=== PATIENT | female | born 1970 | race Caucasian/White ===

== ENCOUNTER 2020-06-25 11:22 | Outpatient (REF) | payer OTHER, SELFPAY ==
--- NOTE | ~2020-06-25 | CT_ITS ---
EXAMINATION: CT ABDOMEN AND PELVIS WITHOUT CONTRAST CLINICAL INFORMATION: Renal calculi. COMPARISON: None TECHNIQUE: Multidetector volumetric imaging was performed from the superior aspect of the liver through the pubic symphysis. Sagittal and coronal reformatted images were obtained on the technologist's workstation. This CT examination was performed using dose optimization techniques as appropriate, variously including the following: *Automated exposure control *Adjustment of mA and/or kV according to patient size (this includes techniques or standardized protocols for targeted exams where dose is matched to indication/reason for exam; i.e. extremities or head) *Use of iterative reconstruction technique DLP: 463 mGy-cm FINDINGS: LUNG BASES: There is dependent bibasilar atelectasis. The heart size is normal. LIVER, GALLBLADDER, AND BILIARY TREE: The liver is normal in size, shape, and attenuation. No focal hepatic lesion or biliary ductal dilatation is present. The gallbladder is unremarkable with no evidence of radiopaque gallstones, gallbladder wall thickening, or obvious pericholecystic inflammatory changes. PANCREAS: Unremarkable. SPLEEN: Unremarkable. ADRENAL GLANDS: Unremarkable. KIDNEYS AND URETERS: The kidneys are normal in size, shape, and attenuation. There is a 3 mm nonobstructive radiopaque calculi upper midpole of left kidney. No caliectasis or hydronephrosis seen. There is a 3 mm radiopaque right distal ureteral stone without hydroureteronephrosis. BLADDER: Unremarkable. GASTROINTESTINAL TRACT: There is scattered stool and gas seen throughout the colon without any significant distention. The small bowel loops are normal caliber. ABDOMINAL WALL: There is a small umbilical hernia containing fat. LYMPH NODES: Normal. VASCULAR: Unremarkable. PELVIC VISCERA: There is an IUD noted in correct position. In addition, there are bilateral Essure devices. OSSEOUS STRUCTURES: No lytic or sclerotic process seen. CT/CT abdomen pelvis wo con IMPRESSION: 3 mm nonobstructive radiopaque calculi right distal ureter without hydroureteronephrosis. 3 mm nonobstructive pubic calculi upper/midpole left kidney.
[2020-06-25 14:11] LABS: Glucose Urine UA NEG (NEG); Leukocyte Esterase Urine NEG (NEG); Nitrite Urine NEG (NEG); Specific Gravity - Urine 1.025 (1.005-1.025); Urine Blood NEG (NEG); Urine Ketones NEG (NEG); Urine Protein NEG (NEG-TRACE)
[2020-06-25 14:14] LABS: Appearance Urine CLEAR; Color Urine YELLOW
[2020-06-25 14:33] LABS: Mucus Urine TRACE /LPF; RBC Urine 0-2 /HPF (0); Renal Epithelial Cells Urine TRACE /LPF; Squamous Epithelial Cell Urine TRACE /LPF
[2020-06-25 16:36] LABS: Hematocrit 45.5 % (37-47); Hemoglobin 15.1 g/dl (12.0-16.0); Mean Corpuscular HGB Conc 33.2 g/dl (31.0-35.0); Mean Corpuscular Hemoglobin 34.3 pg (27.0-33.0); Mean Corpuscular Volume 103.4 fL (80-98); Mean Platelet Volume 10.7 fL (9.4-12.3); Platelet Count 295 X10*3/uL (160-400); White Blood Count 7.2 X10*3/uL (4.8-10.8)
[2020-06-25 17:04] LABS: Alanine Aminotransferase 26 U/L (0-31); Albumin Level 4.6 g/dL (3.5-5.0); Alkaline Phosphatase 79 U/L (39-117); Anion Gap 15 (12-20); Aspartate Amino Transferase 31 U/L (5-31); Bilirubin Total 0.4 mg/dL (0.0-1.0); Blood Urea Nitrogen 18 mg/dL (9-16); Calcium 9.9 mg/dL (8.4-10.2); Carbon Dioxide 26 mmol/L (22-29); Chloride 104 mmol/L (96-108); Cholesterol 267 mg/dL; Estimated Glomerular Filt Rate > 60; Glucose Fasting 77 mg/dL (60-99); HDL Cholesterol 73 mg/dL; LDL Cholesterol Calculated 173 mg/dl; Potassium 4.6 mmol/L (3.3-5.1); Sodium 140 mmol/L (135-145); Total Protein 7.5 g/dL (6.5-8.0); Triglycerides 107 mg/dL
[2020-06-25 17:26] LABS: Thyroid Stimulating Hormone 1.39 uIU/mL (0.32-4.0)
[2020-06-27 00:32] LABS: Follicle Stimulating Hormone 83.1 mIU/mL
== END 2020-06-25 11:23 | disposition home or self-care (01) ==
LOC: HO.CT 11:22
PROVIDERS: PCP Internal Medicine; Visit Provider Internal Medicine
DX: R10.9 Unspecified abdominal pain (principal); R31.9 Hematuria, unspecified; Z87.442 Personal history of urinary calculi; R00.2 Palpitations; N95.9 Unspecified menopausal and perimenopausal disorder; F41.9 Anxiety disorder, unspecified
CPT/HCPCS: 36415; 74176; 80053; 80061; 81001; 83001; 84443; 85027

== ENCOUNTER 2020-06-26 14:19 | Emergency (ER) | payer OTHER, SELFPAY ==
[2020-06-26 14:25] VITALS: BP 184/100; PULSE 81; RESP 18; TEMP 37.1; O2SAT 100; BMI 24.9
[2020-06-26 14:54] LABS: MANUAL DIFF FLAG NO
[2020-06-26 14:55] LABS: Basophils Absolute Auto 0.1 X10*3/uL (0.0-0.2); Basophils Percent Auto 0.9 % (0-2); Eosinophils Absolute Auto 0.2 X10*3/uL (0.0-0.4); Eosinophils Percent Auto 1.9 % (0-4); Hematocrit 44.4 % (37-47); Hemoglobin 15.3 g/dl (12.0-16.0); Imm Gran Abs Auto 0.03 X10*3/uL (0.00-0.03); Imm Gran Pct Auto 0.3 % (0.0-0.4); Lymphocytes Absolute Auto 2.4 X10*3/uL (1.2-4.9); Lymphocytes Percent Auto 21.5 % (20-40); Mean Corpuscular HGB Conc 34.5 g/dl (31.0-35.0); Mean Corpuscular Hemoglobin 34.7 pg (27.0-33.0); Mean Corpuscular Volume 100.7 fL (80-98); Monocytes Percent Auto 9.3 % (2-11); Neutrophils Absolute Auto 7.3 X10*3/uL (2.0-8.3); Neutrophils Percent Auto 66.1 % (45-73); Platelet Count 293 X10*3/uL (160-400); Red Blood Count 4.41 X10*6/uL (4.20-5.50); Red Cell Distribution Width 12.8 % (11.0-16.0)
[2020-06-26 15:19] LABS: Anion Gap 17 (12-20); Blood Urea Nitrogen 17 mg/dL (9-16); Calcium 9.7 mg/dL (8.4-10.2); Carbon Dioxide 20 mmol/L (22-29); Chloride 105 mmol/L (96-108); Creatinine Clr Calc Pharmacy 64.2; Estimated Glomerular Filt Rate 59; Glucose Random 98 mg/dL (60-115); Potassium 4.3 mmol/L (3.3-5.1); Sodium 138 mmol/L (135-145)
--- NOTE | 2020-06-26 15:26 | ED.ABDPAIN ---
HPI - Abdominal Pain General Chief Complaint: Abdominal Pain Stated Complaint: FLANK PAIN Time Seen by Provider: 06/26/20 15:23 Source: patient Mode of arrival: ambulatory Limitations: no limitations History of Present Illness HPI narrative: Patient with History of kidney stones last episode of stone was 4 years ago was doing fine 6 years ago noticed sudden onset of pain in the right flank area radiating to the right lower quadrant which lasted for a day did not have any pain for last 5 days, started on antibiotics by PCP thinking of UTI had a CT scan done yesterday which showed 3 mm stone in distal right ureter with with no hydronephrosis today again since morning patient started having pain with nausea and vomited 1 time more severe than last time patient denies any hematuria or urinary complaint MD elicited complaint: flank pain Pertinent past history: kidney stones Onset (ago): day(s) Pain Consistency: constant Location: R flank Severity: severe Quality: stabbing Radiation: RLQ Exacerbating factors: nothing Relieving factors: nothing Associated symptoms: nausea and vomiting Related Data Home Medications Medication Instructions Recorded Confirmed secukinumab 150 mg/mL subcutaneous mg SUBCUT Q4W 05/03/20 05/03/20 pen injector Previous Rx's Medication Instructions Recorded buspirone 10 mg tablet 10 mg PO BID #60 tab 05/03/20 lorazepam 0.5 mg tablet 0.5 mg PO DAILY PRN #20 tab 05/03/20 ciprofloxacin HCl 250 mg tablet 250 mg PO BID 3 Days #6 tab 06/21/20 oxycodone 5 mg PO Q6H PRN #20 tab 06/26/20 tamsulosin [Flomax] 0.4 mg PO BEDTIME #10 cap 06/26/20 Allergies Allergy/AdvReac Type Severity Reaction Status Date / Time No Known Allergies Allergy Verified 06/21/20 10:15 Review of Systems Review of Systems Constitutional : No Weight loss, No Fever, No Chills ENT/Mouth : No sore throat, No Rhinorrhea Eyes: No Eye Pain, No Swelling Cardiovascular : No Chest Pain, no palpitations Respiratory : No Cough, No Sputum, no shortness of breath Gastrointestinal : +Nausea, + Vomiting, No Diarrhea, No abdominal Pain, no black stools Genitourinary : No Dysuria, No Urinary Frequency Musculoskeletal : No joint pain, No Myalgias, No Joint Swelling Skin : No Skin Lesions, No rash Neuro : No Weakness, No Numbness, No Dizziness, No Headache Psych : No Anxiety/Panic, No Depression Heme/Lymph: No Bruising, No Lymphadenopathy Endocrine : No Polyuria, No Polydipsia All other systems reviewed and are negative Physical Exam Vital Signs: Vital Signs: Last Vital Signs Temp 98.9 F 06/26/20 18:05 Pulse 65 06/26/20 18:05 Resp 16 06/26/20 18:05 BP 115/85 06/26/20 18:05 Pulse Ox 96 06/26/20 18:05 Body Mass Index 24.9 Appearance: Alert. Oriented X3. In moderate distress. Eyes: Pupils equal, round and reactive to light. ENT: Pharynx normal. Neck: Normal inspection. Neck supple. CVS: Normal heart rate and rhythm. Pulses normal. Respiratory: No respiratory distress. Breath sounds normal. Abdomen: Soft and nontender. Bowel sounds are present, no mass palpable, right CVA tenderness ++ Skin: Skin warm and dry. Normal skin color. Normal skin turgor. Extremities: No lower extremity edema. Neuro: Oriented X 3. No motor deficit. No sensory deficit. Course Course Course Narrative: Patient with right renal colic with 3 mm stone in distal ureter feeling much better now almost pain-free will discharge her home advised to follow-up with urologist MDM - Abdominal Pain Lab Data Result diagrams: 06/26/20 14:47 06/26/20 14:47 Labs: Lab Results 06/26/20 06/26/20 06/26/20 Range/Units 14:47 14:47 14:47 WBC 11.0 H (4.8-10.8) X10*3/uL RBC 4.41 (4.20-5.50) X10*6/uL Hgb 15.3 (12.0-16.0) g/dl Hct 44.4 (37-47) % MCV 100.7 H (80-98) fL MCH 34.7 H (27.0-33.0) pg MCHC 34.5 (31.0-35.0) g/dl RDW 12.8 (11.0-16.0) % Plt Count 293 (160-400) X10*3/uL MPV 10.0 (9.4-12.3) fL Immature Gran % (Auto) 0.3 (0.0-0.4) % Neut % (Auto) 66.1 (45-73) % Lymph % (Auto) 21.5 (20-40) % [place] % (Auto) 9.3 (2-11) % Eos % (Auto) 1.9 (0-4) % Baso % (Auto) 0.9 (0-2) % Lymph # (Auto) 2.4 (1.2-4.9) X10*3/uL [place] # (Auto) 1.0 (0.1-1.2) X10*3/uL Eos # (Auto) 0.2 (0.0-0.4) X10*3/uL Baso # (Auto) 0.1 (0.0-0.2) X10*3/uL Abs Immat Gran (auto) 0.03 (0.00-0.03) X10*3/uL Absolute Neuts (auto) 7.3 (2.0-8.3) X10*3/uL Absolute Nucleated RBC 0.000 (0.0-0.012) X10*3/uL Nucleated RBC % (auto) 0.0 (0.0-0.2) /100WBC Hold Purple Top SEE NOTE Hold Blue Top Sodium 138 (135-145) mmol/L Potassium 4.3 (3.3-5.1) mmol/L Chloride 105 (96-108) mmol/L Carbon Dioxide 20 L (22-29) mmol/L Anion Gap 17 (12-20) BUN 17 H (9-16) mg/dL Creatinine 1.00 (0.5-1.4) mg/dL Estim Creat Clear Calc 64.2 Estimated GFR 59 Random Glucose 98 (60-115) mg/dL Calcium 9.7 (8.4-10.2) mg/dL Urine Color Urine Appearance Urine pH (5.0-8.0) Ur Specific Monument (1.005-1.025) Urine Protein (NEG-TRACE) MG/DL Urine Glucose (UA) (NEG) MG/DL Urine Ketones (NEG) MG/DL Urine Blood (NEG) Urine Nitrite (NEG) Ur Leukocyte Esterase (NEG) Urine RBC (0) /HPF Urine WBC (0-4) /HPF Ur Squamous Epith Cells /LPF Urine Bacteria /LPF Urine Mucus /LPF Urine Test (NEGATIVE) 02/06/21 02/06/21 Range/Units 14:47 17:32 WBC (4.8-10.8) X10*3/uL RBC (4.20-5.50) X10*6/uL Hgb (12.0-16.0) g/dl Hct (37-47) % MCV (80-98) fL MCH (27.0-33.0) pg MCHC (31.0-35.0) g/dl RDW (11.0-16.0) % Plt Count (160-400) X10*3/uL MPV (9.4-12.3) fL Immature Gran % (Auto) (0.0-0.4) % Neut % (Auto) (45-73) % Lymph % (Auto) (20-40) % [place] % (Auto) (2-11) % Eos % (Auto) (0-4) % Baso % (Auto) (0-2) % Lymph # (Auto) (1.2-4.9) X10*3/uL [place] # (Auto) (0.1-1.2) X10*3/uL Eos # (Auto) (0.0-0.4) X10*3/uL Baso # (Auto) (0.0-0.2) X10*3/uL Abs Immat Gran (auto) (0.00-0.03) X10*3/uL Absolute Neuts (auto) (2.0-8.3) X10*3/uL Absolute Nucleated RBC (0.0-0.012) X10*3/uL Nucleated RBC % (auto) (0.0-0.2) /100WBC Hold Purple Top Hold Blue Top SEE NOTE Sodium (135-145) mmol/L Potassium (3.3-5.1) mmol/L Chloride (96-108) mmol/L Carbon Dioxide (22-29) mmol/L Anion Gap (12-20) BUN (9-16) mg/dL Creatinine (0.5-1.4) mg/dL Estim Creat Clear Calc Estimated GFR Random Glucose (60-115) mg/dL Calcium (8.4-10.2) mg/dL Urine Color YELLOW Urine Appearance HAZY Urine pH 5.5 (5.0-8.0) Ur Specific Monument >= 1.030 H (1.005-1.025) Urine Protein TRACE (NEG-TRACE) MG/DL Urine Glucose (UA) NEG (NEG) MG/DL Urine Ketones NEG (NEG) MG/DL Urine Blood 2+ H (NEG) Urine Nitrite NEG (NEG) Ur Leukocyte Esterase NEG (NEG) Urine RBC 15-29 H (0) /HPF Urine WBC 0-2 (0-4) /HPF Ur Squamous Epith Cells 1+ /LPF Urine Bacteria NONE /LPF Urine Mucus 1+ /LPF Urine Test NEGATIVE (NEGATIVE) Discharge Plan Discharge Clinical Impression: Calculus of kidney Patient Disposition: Home, Self-Care Instructions: Kidney Stones (ED) Additional Instructions: And plenty of fluids. Take pain medication as prescribed. Follow with urologist if pain continues Prescriptions: New oxycodone 5 mg tablet 5 mg PO Q6H PRN (Reason: Pain, Moderate) Qty: 20 RF: 0 tamsulosin [Flomax] 0.4 mg capsule 0.4 mg PO BEDTIME Qty: 10 RF: 0 No Action Cosentyx Pen (2 Pens) 150 mg/mL pen injector subcut Q4W RF: 0 buspirone 10 mg tablet 10 mg PO BID Qty: 60 RF: 3 lorazepam 0.5 mg tablet 0.5 mg PO DAILY PRN (Reason: anxiety) Qty: 20 RF: 0 ciprofloxacin HCl 250 mg tablet 250 mg PO BID 3 Days Qty: 6 RF: 0 Referrals: Shyam Ji III, MD [Physician] - 2 days Interventions: ED Discharge Assessment Last Done: 06/26/20 18:43 Discharge Date/Time: 06/26/20 18:43 [facility] Past Medical History Medical History (Updated 06/26/20 @ 18:25 by Castro Richards MD) Annual physical exam Anxiety Kidney stone Menopausal disorder Palpitations Surgical History History of section History of tubal ligation Family History Family History Father CVD (cardiovascular disease) History of heart attack Mother HTN (hypertension) Maternal Grandmother Aneurysm Maternal Grandfather Myocardial infarction Maternal Grandmother Aneurysm Paternal Grandfather Myocardial infarction CVD (cardiovascular disease) Paternal Grandmother Aneurysm Paternal Uncle CVD (cardiovascular disease) Myocardial infarction Brother No problems noted. Daughter No problems noted. Social History Social History Alcohol intake: current Alcohol intake frequency: a few times a month Smoking Status: Current every day smoker Tobacco Type: Cigarette Cigarettes Per Day: 5 Years Smoked: 20 years Use of substances other than those prescribed or required for medical reasons: No Advance Directives: No Advance Directives Information Provided: No
[2020-06-26 15:33] VITALS: BP 167/101; PULSE 68; RESP 20; TEMP 36.7; O2SAT 97
[2020-06-26] MEDS: Tamsulosin HCL 0.4 MG CAPSULE 0.8 MG PO (16:10)
[2020-06-26] MEDS: 0.9 % Sodium Chloride 1,000 ML 999 ML IVCONT (16:10)
[2020-06-26] MEDS: ondansetron HCL 4 MG/2 ML VIAL IVPUSH (16:12)
[2020-06-26] MEDS: Ketorolac Tromethamine 30 MG/ML VIAL IVPUSH (16:13)
[2020-06-26 16:14] VITALS: RESP 20
[2020-06-26] MEDS: Morphine Sulfate 4 MG/ML CARTRIDGE IVPUSH ×2 (16:14→17:42)
[2020-06-26 16:56] VITALS: BP 161/93; PULSE 53; RESP 16; TEMP 37.2; O2SAT 99
[2020-06-26 17:39] LABS: Appearance Urine HAZY; Color Urine YELLOW; Glucose Urine UA NEG (NEG); Leukocyte Esterase Urine NEG (NEG); Nitrite Urine NEG (NEG); PH 5.5 (5.0-8.0); Specific Gravity - Urine >= 1.030 (1.005-1.025); Urine Blood 2+ (NEG); Urine Ketones NEG (NEG); Urine Protein TRACE MG/DL (NEG-TRACE)
[2020-06-26 17:40] LABS: UPreg QC Valid YES; Urine Pregnancy NEGATIVE (NEGATIVE)
[2020-06-26 17:42] VITALS: RESP 16
[2020-06-26] MEDS: dexAMETHasone sod phosphate 4 MG/ML VIAL IVPUSH (17:43)
[2020-06-26 17:46] LABS: Mucus Urine 1+ /LPF; Squamous Epithelial Cell Urine 1+ /LPF; WBC Urine 0-2 /HPF (0-4)
--- NOTE | 2020-06-26 17:49 | PC.NURSE ---
Pt tolerating PO well.
[2020-06-26 18:05] VITALS: BP 115/85; PULSE 65; RESP 16; TEMP 37.2; O2SAT 96
== END 2020-06-26 18:43 | disposition home or self-care (01) ==
PROVIDERS: Emergency Provider Internal Medicine; PCP Internal Medicine
DX: N20.0 Calculus of kidney (principal); R10.31 Right lower quadrant pain
CPT/HCPCS: 36415; 80048; 81001; 81025; 85025; 96361; 96374; 96375; 96376; 99284; J1100; J1885; J2270; J2405

== ENCOUNTER → 2020-07-06 11:23 | Outpatient (BNVA) | payer OTHER, SELFPAY | PROVIDERS: PCP Internal Medicine; Visit Provider Urology | DX: N20.0 Calculus of kidney (principal) | CPT/HCPCS: 99202 ==

== ENCOUNTER 2020-09-03 14:47 | Outpatient (REF) | payer OTHER, SELFPAY ==
[2020-09-03 16:51] LABS: Calcium 9.6 mg/dL (8.4-10.2); Magnesium 1.9 mg/dL (1.6-2.6); Phosphorus 3.4 mg/dL (2.7-4.5)
[2020-09-06 16:17] LABS: Calcium (PTHI) 9.8 mg/dL (8.6-10.2); PTHI 27 pg/mL (14-64)
== END 2020-09-03 14:48 | disposition home or self-care (01) ==
LOC: HO.HMGCLDS 14:47
PROVIDERS: Visit Provider Urology
DX: N20.0 Calculus of kidney (principal); Z87.442 Personal history of urinary calculi
CPT/HCPCS: 36415; 82310; 83735; 83970; 84100

== ENCOUNTER 2021-02-21 09:51 | Outpatient (REF) | payer OTHER, SELFPAY ==
--- NOTE | ~2021-02-21 | US_ITS ---
EXAMINATION: US RETROPERITONEAL LIMITED (RENAL ONLY) CLINICAL INFORMATION: Calculus of kidney. COMPARISON: CT abdomen and pelvis 06/25/2020. TECHNIQUE: Real-time imaging of the kidneys. FINDINGS: RIGHT KIDNEY: 11.3 x 4.4 x 5.9 cm (SAG x AP x TRV). The kidney is normal in size, contour, and echogenicity. Renal cortical thickness is normal. No calculi or focal parenchymal lesions. No hydronephrosis. LEFT KIDNEY: 10.4 x 5.0 x 5.2 cm (SAG x AP x TRV). The kidney is normal in size, contour, and echogenicity. Renal cortical thickness is normal. There is a 6 x 4 x 4 mm stone in the upper pole. No focal parenchymal lesions or hydronephrosis. US/US renal BI IMPRESSION: Left renal stone.
--- NOTE | ~2021-02-21 | XR_ITS ---
EXAMINATION: XR SACROILIAC JOINTS XR HIP WITH PELVIS, BILATERAL CLINICAL INFORMATION: Psoriasis. COMPARISON: CT abdomen/pelvis dated 06/25/2020. TECHNIQUE: AP and bilateral Judet views of the sacroiliac joints. AP view the pelvis with AP and frog-leg lateral views of the right and left hip. FINDINGS: SACROILIAC JOINTS: No acute fracture or dislocation. Small bilateral sacroiliac marginal osteophytes. No osseous erosion. IUD and Essure device within the pelvis. No abnormal soft tissue calcification. BILATERAL HIP AND PELVIS: No acute fracture or dislocation. No significant hip joint space narrowing or marginal osteophytes. Corticated accessory ossicle versus remote fracture fragment along the anterosuperior aspect of the right acetabulum. No osseous erosion. XR/XR hip BI w PEL1V IMPRESSION: Sacroiliac joints: Mild bilateral sacroiliac degenerative arthritis. Bilateral hip and pelvis: No acute osseous abnormality.
--- NOTE | ~2021-02-21 | XR_ITS ---
EXAMINATION: XR SACROILIAC JOINTS XR HIP WITH PELVIS, BILATERAL CLINICAL INFORMATION: Psoriasis. COMPARISON: CT abdomen/pelvis dated 06/25/2020. TECHNIQUE: AP and bilateral Judet views of the sacroiliac joints. AP view the pelvis with AP and frog-leg lateral views of the right and left hip. FINDINGS: SACROILIAC JOINTS: No acute fracture or dislocation. Small bilateral sacroiliac marginal osteophytes. No osseous erosion. IUD and Essure device within the pelvis. No abnormal soft tissue calcification. BILATERAL HIP AND PELVIS: No acute fracture or dislocation. No significant hip joint space narrowing or marginal osteophytes. Corticated accessory ossicle versus remote fracture fragment along the anterosuperior aspect of the right acetabulum. No osseous erosion. XR/XR sacroiliac joint min 3V IMPRESSION: Sacroiliac joints: Mild bilateral sacroiliac degenerative arthritis. Bilateral hip and pelvis: No acute osseous abnormality.
== END 2021-02-21 09:52 | disposition home or self-care (01) ==
LOC: HO.HMGCX 09:51
PROVIDERS: PCP Internal Medicine; Visit Provider Urology
DX: N20.0 Calculus of kidney (principal); Z87.442 Personal history of urinary calculi; M25.652 Stiffness of left hip, not elsewhere classified; M25.651 Stiffness of right hip, not elsewhere classified; M54.50 Low back pain, unspecified
CPT/HCPCS: 72202; 73521; 76775

== ENCOUNTER → 2021-02-23 09:21 | Outpatient (BNVA) | payer OTHER, SELFPAY | PROVIDERS: PCP Internal Medicine | DX: N20.0 Calculus of kidney (principal); Z87.442 Personal history of urinary calculi | CPT/HCPCS: 99212 ==

== ENCOUNTER 2021-06-17 12:09 | Emergency (ER) | payer OTHER, SELFPAY ==
[2021-06-17 12:26] VITALS: BP 188/107; PULSE 72; RESP 16; TEMP 36.4; O2SAT 97; BMI 25.7
--- NOTE | 2021-06-17 14:51 | ECG_ITS ---
Test Reason : HTN Blood Pressure : / mmHG Vent. Rate : 057 BPM Atrial Rate : 057 BPM P-R Int : 216 ms QRS Dur : 080 ms QT Int : 410 ms P-R-T Axes : 047 051 046 degrees QTc Int : 399 ms Sinus bradycardia with 1st degree A-V block Otherwise normal ECG When compared with ECG of 07-APR-2018 14:02, No significant change was found Referred By: Generic ED Physician Electronically Signed By:TISH LUCERO MD
[2021-06-17 15:26] VITALS: BP 164/86; PULSE 60; RESP 14; TEMP 36.8; O2SAT 99
[2021-06-17 15:40] LABS: MANUAL DIFF FLAG NO
[2021-06-17 15:41] LABS: Basophils Percent Auto 0.5 % (0-2); Eosinophils Absolute Auto 0.2 X10*3/uL (0.0-0.4); Eosinophils Percent Auto 2.5 % (0-4); Hematocrit 39.7 % (37.0-47.0); Hemoglobin 13.6 g/dl (12.0-16.0); Imm Gran Abs Auto 0.01 X10*3/uL (0.00-0.03); Imm Gran Pct Auto 0.2 % (0.0-0.4); Lymphocytes Absolute Auto 1.8 X10*3/uL (1.2-4.9); Lymphocytes Percent Auto 29.3 % (20-40); Mean Corpuscular HGB Conc 34.3 g/dl (31.0-35.0); Mean Corpuscular Hemoglobin 33.6 pg (27.0-33.0); Mean Platelet Volume 9.7 fL (9.4-12.3); Monocytes Absolute Auto 0.6 X10*3/uL (0.1-1.2); Monocytes Percent Auto 9.1 % (2-11); Neutrophils Absolute Auto 3.7 x10*3/uL (2.0-8.3); Neutrophils Percent Auto 58.4 % (45-73); Platelet Count 234 X10*3/uL (160-400); Red Blood Count 4.05 X10*6/uL (4.20-5.50); Red Cell Distribution Width 12.6 % (11.0-16.0); White Blood Count 6.3 X10*3/uL (4.8-10.8)
[2021-06-17 15:54] LABS: COVID-19 Test Negative (Negative)
[2021-06-17 16:02] LABS: Alanine Aminotransferase 24 U/L (0-31); Alkaline Phosphatase 89 U/L (39-117); Anion Gap 12 (12-20); Aspartate Amino Transferase 23 U/L (5-31); Bilirubin Total 0.4 mg/dL (0.0-1.0); Blood Urea Nitrogen 13 mg/dL (9-16); Calcium 9.5 mg/dL (8.4-10.2); Carbon Dioxide 27 mmol/L (22-29); Chloride 107 mmol/L (96-108); Creatinine Clr Calc Pharmacy 65.8; Estimated Glomerular Filt Rate > 60; Glucose Random 98 mg/dL (60-115); Potassium 4.3 mmol/L (3.3-5.1); Sodium 142 mmol/L (135-145); Total Protein 6.7 g/dL (6.5-8.0); Troponin-I High Sensitivity 4.3 ng/L (<3.5-17.0)
--- NOTE | 2021-06-17 16:30 | ED_ITS ---
HPI - General Adult General Chief complaint: General Medical Stated complaint: HBP Time Seen by Provider: 06/17/21 15:53 Source: patient Mode of arrival: ambulatory Limitations: no limitations History of Present Illness HPI narrative: 50-year-old female who presents emergency department for evaluation of elevated blood pressures which was detected at her siebel crm developer's office. The patient has a history of psoriasis. She was started on a new biologic agent, Taltz 80 mg subcutaneously every 3 weeks. She states that she had a follow-up appointment with her siebel crm developer on a took her blood pressure in the office I was 170/112. She was referred to her PCPs office for re-evaluation . The nurse from the PCP's office contacted the patient and advised her to go to the emergency department for evaluation. the patient states that she has not been feeling well since Sunday06/12/2021, 6 days prior to evaluation. She states that she has been having intermittent headache which she describes her located in the back her head and feels like sinus pressure, she states that the headache is 3/10 at its worse and does go away for periods of time. She states the headache came on gradually. She also states she feels congested especially in her right nares and right side of her face. She has been taking Benadryl 25 mg daily. She states she is feeling fatigued and is having pain in her muscles and joints. She denied fever, chills, chest pain, shortness of breath, cough, dyspnea on exertion, diarrhea, loss of sense of taste or smell. The patient has received 2 Moderna vaccines for COVID-19. Patient states that 2 weeks prior she was in [place] on vacation at an [place] resort. Related Data Home Medications Medication Instructions Recorded Confirmed secukinumab 150 mg/mL mg SUBCUT Q4W 05/03/20 05/03/20 subcutaneous pen injector calcipotriene 0.005 % topical 1 appl TOPICAL BID 02/23/21 cream fluocinonide 0.05 % topical 1 appl TOPICAL BID PRN 02/23/21 solution Previous Rx's Medication Instructions Recorded lorazepam 0.5 mg tablet 0.5 mg PO DAILY PRN #20 tab 05/03/20 ciprofloxacin HCl 250 mg tablet 250 mg PO BID 3 Days #6 tab 06/21/20 oxycodone 5 mg tablet 5 mg PO Q6H PRN #20 tab 06/26/20 tamsulosin 0.4 mg capsule (Flomax) 0.4 mg PO BEDTIME #10 cap 06/26/20 pyridoxine (vitamin B6) 100 mg 100 mg PO DAILY 90 Days #90 tab 02/23/21 tablet buspirone 10 mg tablet 10 mg PO BID #180 tab 03/22/21 Allergies Allergy/AdvReac Type Severity Reaction Status Date / Time No Known Allergies Allergy Verified 02/23/21 09:26 Review of Systems Verdana 4l Review of Systems: Yes all other systems are reviewed and Verdana 4d are negative [facility] Past Medical History [facility] Narrative: Past medical history: Psoriasis. Past surgical history: , bilateral tubal ligation. Social history: The patient smokes 1/3 pack of cigarettes per day times 35 years. She drinks alcohol on the weekends usually drinks 6 alcoholic seltzers. She states she occasionally smokes marijuana. Medical History Annual physical exam Anxiety Kidney stone Menopausal disorder Palpitations Surgical History History of section History of tubal ligation Family History Family History Father CVD (cardiovascular disease) History of heart attack Mother HTN (hypertension) Maternal Grandmother Aneurysm Maternal Grandfather Myocardial infarction Maternal Grandmother Aneurysm Paternal Grandfather Myocardial infarction CVD (cardiovascular disease) Paternal Grandmother Aneurysm Paternal Uncle CVD (cardiovascular disease) Myocardial infarction Brother No problems noted. Daughter No problems noted. Social History Social History Alcohol intake: current Alcohol intake frequency: a few times a month Cigarettes Per Day: 5 Years Smoked: 20 years Advance Directives: No Advance Directives Information Provided: No Patient : No Physical Exam Verdana 4l Vital Signs: Verdana 4d Verdana 4d Vital Signs: Verdana 4d Verdana 4Bd Last Vital Signs Verdana 4d Analog Ic Design Engineer New 4d Analog Ic Design Engineer New 4d Temp 98.2 F 06/17/21 15:26 Analog Ic Design Engineer New 4d Pulse 60 01/28/22 15:26 Analog Ic Design Engineer New 4d Resp 14 06/17/21 15:26 BP 164/86 H 06/17/21 15:26 Pulse Ox 99 06/17/21 15:26 BMI result Body Mass Index 25.7 Const: General: cooperative and no acute distress Orientation/consciousness: orient ed to person and oriented to place Limitations: no limitations HENMT: Head: Yes normal to inspection, Yes normocephalic and Yes atraumatic Ears: external ears normal General nose exam: Normal external nose present Face and sinus: Yes normal facial exam Mouth: Normal oral and palatal mucosa present Throat: Yes posterior oropharynx normal Eyes: General: appearance normal, both eyes and all related structures Pupils: Equal, round and reactive pupils present Neck: Neck: Yes normal visual inspection, Yes no lymphadenopathy, Yes trachea midline and Yes supple Chest: Chest palpation & inspection: normal inspection of the chest and normal palpation of entire chest wall Resp: Effort & Inspection: normal respiratory effort and able to speak in complete sentences Auscultation: clear to auscultation bilaterally Cardio: Rate: regular rate Rhythm: regular rhythm Heart sounds: S1 normal heart sound present, S2 normal heart sound present and no murmurs GI: Inspection: Yes normal to inspection Palpation (GI): Soft to palpation, nontender and no guarding Auscultation: normal bowel sounds : General: Yes no CVA tenderness Back/Spine/Pelvis: Back: no CVA tenderness Skin: General skin exam: no rashes or lesions noted Neuro: General: oriented to person and oriented to place Cranial nerves: Yes CN's II-XII intact bilaterally and Yes Equal, round and reactive pupils present Cognition (Neuro): normal cognition Motor exam (neuro): 5/5 motor strength present throughout Extrem: General: Yes normal to inspection Psych: Appearance: grossly normal Speech and movement: Normal speech and movement present Affect: normal affect Attitude: cooperative Thought process: Normal thought process present Thought content: Normal thought content present Course Course Course Narrative: 50-year-old female who is referred to the emergency department for evaluation of an elevated blood pressure that was found on a routine follow-up dermatology appointment for her psoriasis. The patient has started a new biologic medications, Taltz but hypertension is not listed as 1 of its common side effects. The patient has been having a headache, joint pain, facial pain and fatigue but I think that these are more consistent with a viral syndrome and not related to her elevated blood pressure. The patient has been vaccinated for COVID-19 in her COVID test today was negative. Patient's physical examination was normal. Patient's CBC and CMP were normal. Patient's high sensitivity troponin I was detectable but not elevate. Twelve EKG was unremarkable. At this time, I do not think the patient has hypertensive crisis/ urgency, stroke, heart attack or renal failure is the cause of her elevated blood pressure. Patient most likely has central hypertension and I did discuss the management and treatment of this condition with her. The patient does not want to be started on blood pressure medications at this time and wants to try cutting salt thought of her diet, exercise and weight loss and follow-up with PCP to determine if she needs blood pressure medications. Patient was given printed and verbal instructions and discharged home. 1722: Urinalysis was normal with no proteinuria. Medical Decision Making Lab Data Result diagrams: 06/17/21 15:35 06/17/21 15:35 Labs: Lab Results 06/17/21 06/17/21 06/17/21 Range/Units 15:35 15:35 15:35 WBC 6.3 (4.8-10.8) X10*3/uL RBC 4.05 L (4.20-5.50) X10*6/uL Hgb 13.6 (12.0-16.0) g/dl Hct 39.7 (37.0-47.0) % MCV 98.0 (80.0-98.0) fL MCH 33.6 H (27.0-33.0) pg MCHC 34.3 (31.0-35.0) g/dl RDW 12.6 (11.0-16.0) % Plt Count 234 (160-400) X10*3/uL MPV 9.7 (9.4-12.3) fL Immature Gran % (Auto) 0.2 (0.0-0.4) % Neut % (Auto) 58.4 (45-73) % Lymph % (Auto) 29.3 (20-40) % [place] % (Auto) 9.1 (2-11) % Eos % (Auto) 2.5 (0-4) % Baso % (Auto) 0.5 (0-2) % Lymph # (Auto) 1.8 (1.2-4.9) X10*3/uL [place] # (Auto) 0.6 (0.1-1.2) X10*3/uL Eos # (Auto) 0.2 (0.0-0.4) X10*3/uL Baso # (Auto) 0.0 (0.0-0.2) X10*3/uL Abs Immat Gran (auto) 0.01 (0.00-0.03) X10*3/uL Absolute Neuts (auto) 3.7 (2.0-8.3) x10*3/uL Absolute Nucleated RBC 0.000 (0.0-0.012) X10*3/uL Nucleated RBC % (auto) 0.0 (0.0-0.2) /100WBC Sodium 142 (135-145) mmol/L Potassium 4.3 (3.3-5.1) mmol/L Chloride 107 (96-108) mmol/L Carbon Dioxide 27 (22-29) mmol/L Anion Gap 12 (12-20) BUN 13 (9-16) mg/dL Creatinine 0.98 (0.5-1.4) mg/dL Estim Creat Clear Calc 65.8 Estimated GFR > 60 Random Glucose 98 (60-115) mg/dL Calcium 9.5 (8.4-10.2) mg/dL Total Bilirubin 0.4 (0.0-1.0) mg/dL AST 23 (5-31) U/L ALT 24 (0-31) U/L Alkaline Phosphatase 89 (39-117) U/L Troponin I High Sens 4.3 (<3.5-17.0) ng/L Total Protein 6.7 (6.5-8.0) g/dL Albumin 4.0 (3.5-5.0) g/dL Urine Color Urine Appearance Urine pH (5.0-8.0) Ur Specific Reynolds (1.005-1.025) Urine Protein (NEG-TRACE) MG/DL Urine Glucose (UA) (NEG) MG/DL Urine Ketones (NEG) MG/DL Urine Blood (NEG) Urine Nitrite (NEG) Ur Leukocyte Esterase (NEG) COVID-19 (RAYMUNDO) (Negative) COVID-19 Clin Com 06/17/21 06/17/21 Range/Units 15:35 16:34 WBC (4.8-10.8) X10*3/uL RBC (4.20-5.50) X10*6/uL Hgb (12.0-16.0) g/dl Hct (37.0-47.0) % MCV (80.0-98.0) fL MCH (27.0-33.0) pg MCHC (31.0-35.0) g/dl RDW (11.0-16.0) % Plt Count (160-400) X10*3/uL MPV (9.4-12.3) fL Immature Gran % (Auto) (0.0-0.4) % Neut % (Auto) (45-73) % Lymph % (Auto) (20-40) % [place] % (Auto) (2-11) % Eos % (Auto) (0-4) % Baso % (Auto) (0-2) % Lymph # (Auto) (1.2-4.9) X10*3/uL [place] # (Auto) (0.1-1.2) X10*3/uL Eos # (Auto) (0.0-0.4) X10*3/uL Baso # (Auto) (0.0-0.2) X10*3/uL Abs Immat Gran (auto) (0.00-0.03) X10*3/uL Absolute Neuts (auto) (2.0-8.3) x10*3/uL Absolute Nucleated RBC (0.0-0.012) X10*3/uL Nucleated RBC % (auto) (0.0-0.2) /100WBC Sodium (135-145) mmol/L Potassium (3.3-5.1) mmol/L Chloride (96-108) mmol/L Carbon Dioxide (22-29) mmol/L Anion Gap (12-20) BUN (9-16) mg/dL Creatinine (0.5-1.4) mg/dL Estim Creat Clear Calc Estimated GFR Random Glucose (60-115) mg/dL Calcium (8.4-10.2) mg/dL Total Bilirubin (0.0-1.0) mg/dL AST (5-31) U/L ALT (0-31) U/L Alkaline Phosphatase (39-117) U/L Troponin I High Sens (<3.5-17.0) ng/L Total Protein (6.5-8.0) g/dL Albumin (3.5-5.0) g/dL Urine Color STRAW Urine Appearance CLEAR Urine pH 6.5 (5.0-8.0) Ur Specific Reynolds <= 1.005 (1.005-1.025) Urine Protein NEG (NEG-TRACE) MG/DL Urine Glucose (UA) NEG (NEG) MG/DL Urine Ketones NEG (NEG) MG/DL Urine Blood NEG (NEG) Urine Nitrite NEG (NEG) Ur Leukocyte Esterase NEG (NEG) COVID-19 (RAYMUNDO) Negative (Negative) COVID-19 Clin Com See Note ECG Data Attestation: I personally reviewed and interpreted this ECG as follows: Interpretation: 1548: Sinus bradycardia with a first-degree AV block with a DE interval of 214 milliseconds, QRS duration and QTC intervals were normal, inverted T-wave in the 1, no ST segment elevation, no ST segment depression, no PACs, no PVCs. Discharge Plan Discharge Clinical Impression: Hypertension Patient Disposition: Home, Self-Care Additional Instructions: Your blood pressure was high in the emergency department 164/86 and 188/107. Normal blood pressure is usually 120/80. You are not having as stroke, heart attack or kidney failure. You are not having hypertensive crisis /urgency at this time. Your blood work is all normal. We did a complete blood count and comprehensive metabolic panel on you. Your EKG was normal. Your COVID-19 test was negative. Your headache and other symptoms are probably related to a viral infection. You can take Tylenol as instructed below for your headache symptoms. At this time, avoid taking ibuprofen and antihistamine such as Benadryl since the sometimes can cause her blood pressure to get high. I will call your send a text with your urine results to let you know if there is any protein in your urine. Purchase a blood pressure machine that is recommended by your pharmacist and start checking your blood pressure once a day in the morning for 1-2 weeks or until you see your primary care doctor High blood pressure instructions: The reason to check your blood pressure at home is to give your doctor an idea of what your blood pressure does when you are not in the doctor's office. Take your blood pressure in the mornings, Mondays , Wednesdays and Fridays and then write down these readings to discuss them with your doctor at your next visit. If you doctor decides that your blood pressure readings are high, there are two strategies to help you reduce your blood pressure. One is to cut salt out of your diet, exercise and lose weight. The other is to start you on a blood pressuremedications. You can discuss these 2 strategies with your doctor when you follow-up to discuss your blood pressure readings that you recorded at home. If you get started on medications, it often takes 1-2 months or longer to get your blood pressure under control. If you decide to cut salt under diet, exercise and lose weight it could take up to 6 months to get her blood pressure under control. Lowering your blood pressure to rapidly or getting your blood pressure too low quickly can make you to feel bad. Please return to the emergency department if you develops concerning symptoms such as severe headache, chest pain, shortness of breath, difficulty walking secondary to shortness of breath, numbness, weakness, difficulty talking. Take Tylenol (acetaminophen) 500 mg pills, 2 pills every 4 to 6 hours as needed for pain. Follow-up with your doctor to discuss your blood pressure readings. Please return to the emergency department if your symptoms get worse or if you develop any new symptoms that are concerning to you. Prescriptions: No Action buspirone 10 mg tablet 10 mg PO BID Qty: 180 3RF oxycodone 5 mg tablet 5 mg PO Q6H PRN (Reason: Pain, Moderate) Qty: 20 0RF tamsulosin [Flomax] 0.4 mg capsule 0.4 mg PO BEDTIME Qty: 10 0RF Cosentyx Pen (2 Pens) 150 mg/mL pen injector subcut Q4W 0RF lorazepam 0.5 mg tablet 0.5 mg PO DAILY PRN (Reason: anxiety) Qty: 20 0RF ciprofloxacin HCl 250 mg tablet 250 mg PO BID 3 Days Qty: 6 0RF pyridoxine (vitamin B6) 100 mg tablet 100 mg PO DAILY 90 Days Qty: 90 1RF Interventions: ED Discharge Assessment Last Done: 06/17/21 16:55 Discharge Date/Time: 06/17/21 16:56
[2021-06-17 16:42] LABS: Appearance Urine CLEAR; Color Urine STRAW; Glucose Urine UA NEG (NEG); Leukocyte Esterase Urine NEG (NEG); Nitrite Urine NEG (NEG); PH 6.5 (5.0-8.0); Specific Gravity - Urine <= 1.005 (1.005-1.025); Urine Blood NEG (NEG); Urine Ketones NEG (NEG); Urine Protein NEG (NEG-TRACE)
== END 2021-06-17 16:56 | disposition home or self-care (01) ==
PROVIDERS: Emergency Provider Emergency Medicine Emergency Medical Services; PCP Internal Medicine
DX: I10 Essential (primary) hypertension (principal); Z20.822 Contact with and (suspected) exposure to COVID-19; Z79.899 Other long term (current) drug therapy; F17.210 Nicotine dependence, cigarettes, uncomplicated; Z71.6 Tobacco abuse counseling
CPT/HCPCS: 80053; 81003; 84484; 85025; 87635; 93005; 99283; 99284

== ENCOUNTER 2021-08-19 07:19 | Outpatient (REF) | payer OTHER, SELFPAY ==
[2021-08-19 11:33] LABS: Hematocrit 40.7 % (37.0-47.0); Hemoglobin 13.7 g/dl (12.0-16.0); Mean Corpuscular HGB Conc 33.7 g/dl (31.0-35.0); Mean Corpuscular Hemoglobin 33.7 pg (27.0-33.0); Mean Platelet Volume 10.2 fL (9.4-12.3); Platelet Count 311 X10*3/uL (160-400); Red Blood Count 4.07 X10*6/uL (4.20-5.50); Red Cell Distribution Width 13.3 % (11.0-16.0); White Blood Count 6.9 X10*3/uL (4.8-10.8)
[2021-08-19 11:57] LABS: Alanine Aminotransferase 18 U/L (0-31); Albumin Level 4.2 g/dL (3.5-5.0); Alkaline Phosphatase 81 U/L (39-117); Anion Gap 13 (12-20); Aspartate Amino Transferase 18 U/L (5-31); Bilirubin Total 0.5 mg/dL (0.0-1.0); Blood Urea Nitrogen 18 mg/dL (9-16); Calcium 10.3 mg/dL (8.4-10.2); Carbon Dioxide 26 mmol/L (22-29); Chloride 106 mmol/L (96-108); Cholesterol 255 mg/dL; Estimated Glomerular Filt Rate > 60; Glucose Fasting 87 mg/dL (60-99); HDL Cholesterol 60 mg/dL; LDL Cholesterol Calculated 140 mg/dl; Potassium 3.9 mmol/L (3.3-5.1); Sodium 141 mmol/L (135-145); Triglycerides 279 mg/dL
== END 2021-08-19 07:20 | disposition home or self-care (01) ==
LOC: HO.HMGCLDS 07:19
PROVIDERS: Visit Provider Internal Medicine
DX: E78.2 Mixed hyperlipidemia (principal); I10 Essential (primary) hypertension
CPT/HCPCS: 36415; 80053; 80061; 85027

== ENCOUNTER 2021-09-09 15:10 | Outpatient (REF) | payer OTHER, SELFPAY ==
--- NOTE | ~2021-09-09 | US_ITS ---
EXAMINATION: US RETROPERITONEAL LIMITED (RENAL ONLY) CLINICAL INFORMATION: Calculus of kidney. Patient states recently passed 2 stones. COMPARISON: Renal ultrasound 02/21/2021. CT abdomen and pelvis 06/25/2020. TECHNIQUE: Real-time imaging of the kidneys. FINDINGS: RIGHT KIDNEY: 9.6 x 4.5 x 5.5 cm (SAG x AP x TRV). The kidney is normal in size, contour, and echogenicity. Renal cortical thickness is normal. No calculi or focal parenchymal lesions. No hydronephrosis. LEFT KIDNEY: 10.2 x 4.7 x 5.2 cm (SAG x AP x TRV). The kidney is normal in size, contour, and echogenicity. Renal cortical thickness is normal. No calculi or focal parenchymal lesions. No hydronephrosis. US/US renal BI IMPRESSION: Unremarkable renal ultrasound.
== END 2021-09-09 15:11 | disposition home or self-care (01) ==
LOC: HO.US 15:10
DX: N20.0 Calculus of kidney (principal); Z87.442 Personal history of urinary calculi
CPT/HCPCS: 76775

== ENCOUNTER → 2021-10-10 11:33 | Outpatient (BNVA) | payer OTHER, SELFPAY | PROVIDERS: PCP Internal Medicine | DX: Z13.89 Encounter for screening for other disorder (principal) ==

== ENCOUNTER 2022-02-03 12:57 | Outpatient (REF) | payer OTHER, SELFPAY ==
--- NOTE | ~2022-02-03 | MM_ITS ---
EXAMINATION: MM SCREENING DIGITAL BREAST TOMOSYNTHESIS, BILATERAL CLINICAL INFORMATION: Screening. Asymptomatic. The lifetime risk of breast cancer based on the Tyrer-Cuzick Model is 10%. COMPARISON: Mammography: 02/16/2020, 07/26/2018, 07/04/2017 TECHNIQUE: Digital breast tomosynthesis is performed in both the craniocaudal and mediolateral oblique views along with computer-aided detection (CAD). Synthesized 2D images are generated from the tomosynthesis. FINDINGS: There are scattered areas of fibroglandular density (ACR BI-RADS breast composition Category b). There are no significant masses, abnormal calcifications, or other abnormalities. There is a circumscribed nodule periareolar upper outer right breast stable in size from prior studies. The axilla and skin contours are unremarkable. No significant changes. MM/MM tomosynthesis screening BI IMPRESSION: No mammographic evidence of malignancy. ASSESSMENT: BI-RADS 2: Benign RECOMMENDATION: Routine annual mammography screening. This patient's information was entered into a reminder system with a target due date for their next mammogram.
== END 2022-02-03 12:58 | disposition home or self-care (01) ==
LOC: HO.MAMMO 12:57
PROVIDERS: Visit Provider Internal Medicine
DX: Z12.31 Encounter for screening mammogram for malignant neoplasm of breast (principal)
CPT/HCPCS: 77063; 77067

== ENCOUNTER 2022-03-08 10:02 | Outpatient (REF) | payer OTHER, SELFPAY | END 2022-03-08 10:03 | disposition home or self-care (01) | LOC: HO.LAB 10:02 | PROVIDERS: PCP Internal Medicine; Visit Provider Nurse Practitioner | DX: Z01.818 Encounter for other preprocedural examination (principal); K62.5 Hemorrhage of anus and rectum; R19.5 Other fecal abnormalities | CPT/HCPCS: 36415; 86140; 99202 ==

== ENCOUNTER 2022-03-22 10:49 | Outpatient (REF) | payer OTHER, SELFPAY ==
[2022-03-22 13:00] LABS: Adenovirus F 40/41 Not Detected (Not Detect.); Astrovirus Not Detected (Not Detect.); Campylobacter Not Detected (Not Detect.); Cryptosporidium Not Detected (Not Detect.); Cyclospora cayetanensis Not Detected (Not Detect.); E. coli EAEC Not Detected (Not Detect.); E. coli EPEC Not Detected (Not Detect.); E. coli ETEC Not Detected (Not Detect.); E. coli STEC Not Detected (Not Detect.); Entamoeba histolytica Not Detected (Not Detect.); Giardia lamblia Not Detected (Not Detect.); Norovirus GI/GII Not Detected (Not Detect.); Plesiomonas shigelloides Not Detected (Not Detect.); Rotavirus A Not Detected (Not Detect.); Salmonella Not Detected (Not Detect.); Sapovirus Not Detected (Not Detect.); Shigella sp./EIEC Not Detected (Not Detect.); Vibrio Not Detected (Not Detect.); Vibrio Cholerae Not Detected (Not Detect.); Yersinia enterocolitica Not Detected (Not Detect.)
== END 2022-03-22 10:50 | disposition home or self-care (01) ==
LOC: HO.LNP 10:49
PROVIDERS: Visit Provider Nurse Practitioner
DX: R19.5 Other fecal abnormalities (principal); K62.5 Hemorrhage of anus and rectum
CPT/HCPCS: 87507

== ENCOUNTER 2022-04-10 13:48 | Outpatient (REF) | payer OTHER, SELFPAY ==
[2022-04-11 05:34] LABS: CT PCR NOT DETECTED (Not Detect.); NG PCR NOT DETECTED (Not Detect.)
[2022-04-19 04:57] LABS: HPV mRNA E6/E7 rflx Not Detected (Not Detected)
== END 2022-04-10 13:49 | disposition home or self-care (01) ==
LOC: HO.LNP 13:48
PROVIDERS: Visit Provider Obstetrics & Gynecology
DX: Z30.432 Encounter for removal of intrauterine contraceptive device (principal); Z12.4 Encounter for screening for malignant neoplasm of cervix; Z11.51 Encounter for screening for human papillomavirus (HPV)
CPT/HCPCS: 58301; 81025; 87491; 87591; 87624; 88142

== ENCOUNTER 2022-04-12 10:09 | Outpatient (REF) | payer OTHER, SELFPAY ==
[2022-04-12 10:29] LABS: MANUAL DIFF FLAG NO
[2022-04-12 11:02] LABS: Basophils Absolute Auto 0.1 X10*3/uL (0.0-0.2); Basophils Percent Auto 1.1 % (0-2); Eosinophils Absolute Auto 0.3 X10*3/uL (0.0-0.4); Eosinophils Percent Auto 3.2 % (0-4); Hematocrit 40.2 % (37.0-47.0); Hemoglobin 13.9 g/dl (12.0-16.0); Imm Gran Abs Auto 0.02 X10*3/uL (0.00-0.03); Imm Gran Pct Auto 0.2 % (0.0-0.4); Lymphocytes Absolute Auto 2.2 X10*3/uL (1.2-4.9); Lymphocytes Percent Auto 23.9 % (20-40); Mean Corpuscular HGB Conc 34.6 g/dl (31.0-35.0); Mean Corpuscular Hemoglobin 34.8 pg (27.0-33.0); Mean Corpuscular Volume 100.5 fL (80.0-98.0); Mean Platelet Volume 9.9 fL (9.4-12.3); Monocytes Absolute Auto 0.9 X10*3/uL (0.1-1.2); Monocytes Percent Auto 9.4 % (2-11); Neutrophils Absolute Auto 5.8 x10*3/uL (2.0-8.3); Neutrophils Percent Auto 62.2 % (45-73); Platelet Count 320 X10*3/uL (160-400); Red Cell Distribution Width 12.6 % (11.0-16.0); White Blood Count 9.3 X10*3/uL (4.8-10.8)
[2022-04-12 12:10] LABS: Alanine Aminotransferase 27 U/L (0-31); Albumin Level 4.5 g/dL (3.5-5.0); Alkaline Phosphatase 116 U/L (39-117); Anion Gap 14 (12-20); Aspartate Amino Transferase 36 U/L (5-31); Bilirubin Total 0.5 mg/dL (0.0-1.0); Blood Urea Nitrogen 13 mg/dL (9-16); Calcium 9.7 mg/dL (8.4-10.2); Carbon Dioxide 29 mmol/L (22-29); Chloride 104 mmol/L (96-108); Cholesterol 174 mg/dL; Estimated Glomerular Filt Rate > 60; Glucose Fasting 64 mg/dL (60-99); HDL Cholesterol 71 mg/dL; LDL Cholesterol Calculated 74 mg/dl; Potassium 4.2 mmol/L (3.3-5.1); Sodium 143 mmol/L (135-145); Total Protein 7.1 g/dL (6.5-8.0); Triglycerides 148 mg/dL
[2022-04-12 12:33] LABS: TSH reflex Free T4 2.98 uIU/mL (0.32-4.0)
[2022-04-12 13:21] LABS: Vitamin D 25-OH Total 49.1 ng/mL (>30)
== END 2022-04-12 10:10 | disposition home or self-care (01) ==
LOC: HO.LAB 10:09
PROVIDERS: PCP Internal Medicine; Visit Provider Internal Medicine
DX: Z00.00 Encounter for general adult medical examination without abnormal findings (principal); E78.2 Mixed hyperlipidemia; I10 Essential (primary) hypertension; R19.5 Other fecal abnormalities; K62.5 Hemorrhage of anus and rectum
CPT/HCPCS: 36415; 80053; 80061; 82306; 84443; 85025; 99212

== ENCOUNTER 2022-06-19 13:50 | Outpatient (REF) | payer OTHER, SELFPAY ==
--- NOTE | ~2022-06-19 | US_ITS ---
EXAMINATION: US RETROPERITONEAL LIMITED (RENAL ONLY) CLINICAL INFORMATION: Personal history of urinary calculi. COMPARISON: Renal ultrasound 09/09/2021 and 02/21/2021. CT abdomen and pelvis 06/25/2020. TECHNIQUE: Real-time imaging of the kidneys. FINDINGS: RIGHT KIDNEY: 10.4 x 5.1 x 6.2 cm (SAG x AP x TRV). The kidney is normal in size, contour, and echogenicity. Renal cortical thickness is normal. No calculi or focal parenchymal lesions. No hydronephrosis. LEFT KIDNEY: 9.7 x 5.2 x 4.9 cm (SAG x AP x TRV). The kidney is normal in size, contour, and echogenicity. Renal cortical thickness is normal. No calculi or focal parenchymal lesions. No hydronephrosis. US/US renal BI IMPRESSION: Negative exam. No renal calculi are seen on the current study.
== END 2022-06-19 13:51 | disposition home or self-care (01) ==
LOC: HO.HMGCX 13:50
DX: Z87.442 Personal history of urinary calculi (principal)
CPT/HCPCS: 76775

== ENCOUNTER → 2022-07-14 14:35 | Outpatient (BNVA) | payer OTHER, SELFPAY | PROVIDERS: PCP Internal Medicine; Visit Provider Nurse Practitioner Family | DX: Z13.89 Encounter for screening for other disorder (principal) ==

== ENCOUNTER 2023-01-23 08:05 | Outpatient (AMB) | payer OTHER, SELFPAY ==
--- NOTE | 2023-01-23 08:11 | AM.OFFWIN_ITS ---
Intake Vital Signs 01/23/23 08:12 Weight 149 lb BP 120/80 Blood Pressure Location Lt brachial Position Sitting Pulse 60 Pulse Source Pulse Oximeter Temp 97.4 F Temp Source Temporal Artery Scan Pulse Oximetry (%) 98 Oxygen Delivery Method Room Air Intake Visit Reasons: Ep, sore throat (masked) Intake Note: Patient here for sore throat for about 6 days. she states she has had this same feeling in the spring and was given amox which helped but is unsure if it the same. Patient Tobacco Use Status: Current everyday Tobacco user Allergies No Known Allergies Allergy (Verified 01/23/23 08:14) Medication List - Last Reconciled 01/23/23 by Shelly Brumfield MD amlodipine 5 mg PO DAILY atorvastatin 20 mg PO BEDTIME buspirone 20 mg (2 x 10 mg) PO BID calcipotriene 0.005% 1 appl topical BID dextromethorphan-guaifenesin 10-200 mg (Coricidin HBP Chest Congestion-Cough) 1 tab-cap PO Q8H PRN 10 days fluocinonide 0.05% 1 appl topical BID PRN ixekizumab (Taltz Autoinjector (2 Pack)) 80 mg subcut Q4W lorazepam 0.5 mg PO DAILY PRN nicotine 1 patch transdermal DAILY valacyclovir 0 mg PO Do you need a note to return to daycare/school/sports/work: No HPI Ep, sore throat (masked) HPI Details Patient is a 52-year-old female came in today to be evaluated for sore throat Patient has been having symptoms for the past 6 days and they are not improving. She has no fever no chills no headache no body aches and pains is no nausea vomiting diarrhea no abdominal pain Her strep test is positive. Patient will be treated with amoxicillin for 10 days She will told to gargle with warm water and tsp of salt for discomfort. She is to push fluids [facility] Medical History Annual physical exam Anxiety HTN (hypertension) Kidney stone Menopausal disorder Palpitations Surgical History History of section History of tubal ligation Family History Father CVD (cardiovascular disease) History of heart attack Mother HTN (hypertension) Maternal Grandmother Aneurysm Maternal Grandfather Myocardial infarction Maternal Grandmother Aneurysm Paternal Grandfather Myocardial infarction CVD (cardiovascular disease) Paternal Grandmother Aneurysm Paternal Uncle CVD (cardiovascular disease) Myocardial infarction Brother No problems noted. Daughter No problems noted. Social History Housing: Condominium Alcohol intake: current Alcohol intake frequency: a few times a month Patient Tobacco Use Status: Current everyday Tobacco user Cigarettes Per Day: 3 Years Smoked: 20 years e-Cigarette/Vaping Use: Never Used Current occupational status: employed Cognitive needs: No Hearing needs: No Vision needs: Yes Female Reproductive History Menstrual Age of Menarche: 13 Review of Systems Const All systems reviewed & are unremarkable except as noted in HPI and below Physical Exam Vital Signs: Last Vital Signs Temp 97.4 F 01/23/23 08:12 Pulse 60 01/23/23 08:12 BP 120/80 01/23/23 08:12 Pulse Ox 98 01/23/23 08:12 Oxygen Delivery Method Room Air 01/23/23 08:12 Const General: no acute distress Orientation/consciousness: patient oriented x3 HEENT Other: Positive throat erythema, uvula midline no exudate Eyes General: appearance normal, both eyes and all related structures Resp Effort & Inspection: normal respiratory effort and able to speak in complete sentences Auscultation: clear to auscultation bilaterally Cardio Other: S1 S2 Neuro General: patient oriented x3 Psych Mental Status: mental status grossly normal Results AMB Rapid Strep AMB Rapid Strep Positive Last Edit by MARIE Locke on 01/23/23 08:34 Results Reviewed Results Reviewed: Laboratory Last Values Strep Scn Rapid Clinic Positive 01/23/23 08:34 Assessment & Plan Assessment & Plan (1) Strep pharyngitis: Code(s): J02.0 - Streptococcal pharyngitis Plan Patient is a 52-year-old female came in today to be evaluated for sore throat Patient has been having symptoms for the past 6 days and they are not improving. She has no fever no chills no headache no body aches and pains is no nausea vomiting diarrhea no abdominal pain Her strep test is positive. Patient will be treated with amoxicillin for 10 days She will told to gargle with warm water and tsp of salt for discomfort. She is to push fluids Orders: Orders AMB Rapid Strep Screen Today Z13.9 - Encounter for screening, unspecified Medications: New amoxicillin 875 mg PO BID 20 tabs 0RF 10 days Coding Level of Care Code Est Pt Level 3 (03611) Diagnoses Strep pharyngitis J02.0
[2023-01-23 08:12] VITALS: BP 120/80; PULSE 60; TEMP 36.3; O2SAT 98
== END 2023-01-23 08:54 | disposition home or self-care (01) ==
PROVIDERS: PCP Internal Medicine; Visit Provider Internal Medicine
DX: J02.0 Streptococcal pharyngitis (principal); J02.9 Acute pharyngitis, unspecified
CPT/HCPCS: 87880; 99213

== ENCOUNTER 2023-04-30 12:10 | Outpatient (REF) | payer OTHER, SELFPAY ==
[2023-04-30 13:17] LABS: MANUAL DIFF FLAG NO
[2023-04-30 13:41] LABS: Basophils Absolute Auto 0.1 X10*3/uL (0.0-0.2); Eosinophils Absolute Auto 0.2 X10*3/uL (0.0-0.4); Eosinophils Percent Auto 2.9 % (0-4); Hemoglobin 14.3 g/dl (12.0-16.0); Imm Gran Abs Auto 0.01 X10*3/uL (0.00-0.03); Imm Gran Pct Auto 0.2 % (0.0-0.4); Lymphocytes Absolute Auto 2.1 X10*3/uL (1.2-4.9); Lymphocytes Percent Auto 38.2 % (20-40); Mean Corpuscular Hemoglobin 33.4 pg (27.0-33.0); Mean Corpuscular Volume 98.1 fL (80.0-98.0); Mean Platelet Volume 10.6 fL (9.4-12.3); Monocytes Absolute Auto 0.6 X10*3/uL (0.1-1.2); Monocytes Percent Auto 10.1 % (2-11); Neutrophils Absolute Auto 2.6 x10*3/uL (2.0-8.3); Neutrophils Percent Auto 46.6 % (45-73); Platelet Count 326 X10*3/uL (160-400); Red Blood Count 4.28 X10*6/uL (4.20-5.50); Red Cell Distribution Width 13.2 % (11.0-16.0); White Blood Count 5.6 X10*3/uL (4.8-10.8)
[2023-04-30 14:22] LABS: Alanine Aminotransferase 26 U/L (0-31); Albumin Level 4.2 g/dL (3.5-5.0); Alkaline Phosphatase 111 U/L (39-117); Anion Gap 16 (12-20); Aspartate Amino Transferase 34 U/L (5-31); Bilirubin Total 0.4 mg/dL (0.0-1.0); Blood Urea Nitrogen 16 mg/dL (9-16); Calcium 9.4 mg/dL (8.4-10.2); Carbon Dioxide 23 mmol/L (22-29); Chloride 108 mmol/L (96-108); Cholesterol 183 mg/dL (<200); Estimated Glomerular Filt Rate > 60; Glucose Fasting 85 mg/dL (60-99); HDL Cholesterol 79 mg/dL (>40); LDL Cholesterol Calculated 62 mg/dL (<100); Potassium 3.8 mmol/L (3.3-5.1); Sodium 143 mmol/L (135-145); Total Protein 7.2 g/dL (6.5-8.0); Triglycerides 212 mg/dL (<150)
[2023-04-30 14:32] LABS: TSH reflex Free T4 1.76 uIU/mL (0.32-4.0); Vitamin D 25-OH Total 42.9 ng/mL (>30)
== END 2023-04-30 12:11 | disposition home or self-care (01) ==
LOC: HO.HMGCLDS 12:10
PROVIDERS: PCP Internal Medicine; Visit Provider Internal Medicine
DX: N95.9 Unspecified menopausal and perimenopausal disorder (principal); E78.2 Mixed hyperlipidemia; I10 Essential (primary) hypertension
CPT/HCPCS: 36415; 80053; 80061; 82306; 84443; 85025

== ENCOUNTER 2023-05-07 13:28 | Outpatient (REF) | payer OTHER, SELFPAY | END 2023-05-07 13:29 | disposition home or self-care (01) | LOC: HO.MAMMO 13:28 | PROVIDERS: PCP Internal Medicine; Visit Provider Internal Medicine | DX: Z12.31 Encounter for screening mammogram for malignant neoplasm of breast (principal) | CPT/HCPCS: 77063; 77067 ==

== ENCOUNTER → 2023-05-07 13:45 | Outpatient (BNV) | payer OTHER, SELFPAY | PROVIDERS: PCP Internal Medicine; Visit Provider Radiology Diagnostic Radiology | DX: Z12.31 Encounter for screening mammogram for malignant neoplasm of breast (principal) | CPT/HCPCS: 77063; 77067 ==

== ENCOUNTER 2023-05-11 13:14 | Outpatient (AMB) | payer OTHER, SELFPAY ==
[2023-05-11 13:17] VITALS: BP 118/72; PULSE 75; O2SAT 98; BMI 25.6
--- NOTE | 2023-05-11 13:17 | MHC.PC.OV ---
Vital Signs 05/11/23 13:17 Height 5 ft 4 in Weight 149 lb BMI 25.6 BP 118/72 Blood Pressure Location Rt brachial Position Sitting Pulse 75 Pulse Source Pulse Oximeter Pulse Oximetry (%) 98 Oxygen Delivery Method Room Air Intake Visit Reasons: PE+NEEDS PHQ9/THRIVE Intake Note: pt is here for physical exam Licensed Psychologist Required: No Accompanied by: Self / Same As Patient Allergies No Known Allergies Allergy (Verified 05/11/23 13:17) Medication List - Last Reconciled 05/11/23 by Priya Varela MD amlodipine 5 mg PO DAILY atorvastatin 20 mg PO BEDTIME buspirone 20 mg (2 x 10 mg) PO BID fluocinonide 0.05% 1 appl topical BID PRN ixekizumab (Taltz Autoinjector (2 Pack)) 80 mg subcut Q4W lorazepam 0.5 mg PO DAILY PRN valacyclovir 0 mg PO Tobacco use date assessed: 05/11/23 Dental Screening Dental Screen Date: 05/11/23 Did you have a dental visit in the last 12 months?: Yes Did you have a dental problem in the last 6 months where you did not have access to dental care?: No Was dental information given to patient?: Patient has dentist HPI PE+NEEDS PHQ9/THRIVE HPI Details Pt presents for PE. [facility] Medical History HTN (hypertension) Kidney stone Menopausal disorder Palpitations Anxiety Annual physical exam Surgical History History of section History of tubal ligation Family History Father CVD (cardiovascular disease) History of heart attack Mother HTN (hypertension) Maternal Grandmother Aneurysm Maternal Grandfather Myocardial infarction Maternal Grandmother Aneurysm Paternal Grandfather Myocardial infarction CVD (cardiovascular disease) Paternal Grandmother Aneurysm Paternal Uncle CVD (cardiovascular disease) Myocardial infarction Brother No problems noted. Daughter No problems noted. Social History Housing: Condominium Alcohol intake: current Alcohol intake frequency: a few times a month Patient Tobacco Use Status: Current everyday Tobacco user Cigarettes Per Day: 3 Years Smoked: 20 years e-Cigarette/Vaping Use: Never Used Current occupational status: employed Cognitive needs: No Hearing needs: No Vision needs: Yes Female Reproductive History Menstrual Age of Menarche: 13 Questionnaire PHQ-9 Over the last 2 weeks, how often have you been bothered by any of the following problems? 1. Little interest or pleasure in doing things: several days 2. Feeling down, depressed, or hopeless: several days 3. Trouble falling or staying asleep, or sleeping too much: nearly every day 4. Feeling tired or having little energy: more than half the days 5. Poor appetite or overeating: several days 6. Feeling bad about yourself - or that you are a failure or have let yourself or your family down: several days 7. Trouble concentrating on things, such as reading the newspaper or watching television: several days 8. Moving or speaking so slowly that other people could have noticed. Or the opposite - being so fidgety or restless that you have been moving around a lot more than usual: not at all 9. Thoughts that you would be better off or of hurting yourself in some way: not at all Total score: 10 Depression Screening Interpretation: Positive Depression Screening Done: Yes 53942 - PHQ-9 Billing: Yes Source: Developed by Drs. Hubert Sutherland, Lauren Lares, Ben Del Real and colleagues, with an educational raymond from [employer] Thrive Questionnaire Date Thrive assessed: 05/11/23 I am a: Patient What is your living situation today?: I have a steady place to live Within the past 12 months, did the food you bought not last and you didn't have the money to get more?: Never true Within the past 12 months, did you worry whether your food would run out before you got money to buy more?: Never true Do you have trouble paying for medicines?: No Do you have trouble getting transportation to medical appointments?: No Do you have trouble paying your heating and electricity bill?: No Do you have trouble taking care of your child, family member or friend?: No Do you have trouble with day-to-day activities such as bathing, preparing meals, shopping, managing finances, etc.?: No Are you currently unemployed and looking for a job?: No Are you interested in more education?: No Please select the resources that you would like help with: None Currently or been in a relationship where the following occur: no concerns reported HAILEY-7 AMB Questionnaire HAILEY-7 Date HAILEY - 7 assessed: 05/11/23 Feeling nervous, anxious, or on edge: 1 = Several days Not being able to stop or control worryin = Several days Worrying too much about different things: 2 = More than half the days Trouble relaxin = Nearly every day Being so restless that it is hard to sit still: 2 = More than half the days Becoming easily annoyed or irritable: 2 = More than half the days Feeling afraid as if something awful might happen: 1 = Several days Total HAILEY-7 score (0-4 normal; 5-9 mild; 10-14 moderate; 15-21 severe): 12 Source: Developed by Drs. Hubert Sutherland, Lauren Lares, Ben Del Real and colleagues, with an educational raymond from [employer] HAILEY-7 Assessment Billing HAILEY-7 Assessment Tool: HAILEY-7 Assessment 62578 Review of Systems Const All systems reviewed & are unremarkable except as noted in HPI and below Reports no additional complaints Eyes Reports no additional complaints ENT Reports no additional complaints Card Reports no additional complaints Resp Reports no additional complaints GI Reports no additional complaints Reports no additional complaints Physical exam (Primary Care) Vital Signs: Last Vital Signs Pulse 75 05/11/23 13:17 BP 118/72 05/11/23 13:17 Pulse Ox 98 05/11/23 13:17 Oxygen Delivery Method Room Air 05/11/23 13:17 BMI result Body Mass Index 25.6 Tobacco/Smoking Status: Tobacco use Status Tobacco use date assessed 05/11/23 05/11/23 13:18 Patient Tobacco Use Status Current everyday Tobacco 05/11/23 13:18 e-Cigarette/Vaping Use Never Used 05/11/23 13:18 Depression Screening Interpretation: Positive Thrive Assessment: Date of Thrive Assessment Date Thrive assessed 07/12/21 05/11/23 13:18 Currently or been in a relationship where the following occur: no concerns reported Const General: no acute distress HENMT Head: Yes normal to inspection Ears: hearing grossly normal bilaterally General nose exam: Normal external nose present Face and sinus: Yes normal facial exam Mouth: Normal oral and palatal mucosa present Throat: Yes posterior oropharynx normal Eyes General: appearance normal, both eyes and all related structures Neck Neck: Yes no lymphadenopathy and Yes supple Resp Effort & Inspection: normal respiratory effort Auscultation: clear to auscultation bilaterally Cardio Rhythm: regular rhythm Heart sounds: S1 normal heart sound present and S2 normal heart sound present GI Inspection: Yes normal to inspection Palpation (GI): Soft to palpation Percussion: Yes normal to percussion Auscultation: normal bowel sounds Assessment and Plan Assessment & Plan (1) HTN (hypertension): Code(s): I10 - Essential (primary) hypertension Plan: cont Amlodipine (2) Combined hyperlipidemia: Code(s): E78.2 - Mixed hyperlipidemia Plan: cont statin (3) Annual physical exam: Code(s): Z00.00 - Encounter for general adult medical examination without abnormal findings Plan: Well-balanced diet regular physical activity stress management discussed with the patient. She was advised to quit smoking and decrease alcohol intake. pt will return in 6 months with a fasting labs before. Patient is up-to-date with mammogram Pap smear by change control manager, and refused colonoscopy but Cologuard will be sent (4) Anxiety: Code(s): F41.9 - Anxiety disorder, unspecified Orders: Orders Comprehensive [place]. Panel Fast 6 Months E78.2 - Mixed hyperlipidemia, F41.9 - Anxiety disorder, unspecified, I10 - Essential (primary) hypertension, Z00.00 - Encounter for general adult medical examination without abnormal findings Lipid Panel 6 Months E78.2 - Mixed hyperlipidemia, F41.9 - Anxiety disorder, unspecified, I10 - Essential (primary) hypertension, Z00.00 - Encounter for general adult medical examination without abnormal findings Complete Blood Count Auto Diff 6 Months E78.2 - Mixed hyperlipidemia, F41.9 - Anxiety disorder, unspecified, I10 - Essential (primary) hypertension, Z00.00 - Encounter for general adult medical examination without abnormal findings Hemoglobin A1c 6 Months E78.2 - Mixed hyperlipidemia, F41.9 - Anxiety disorder, unspecified, I10 - Essential (primary) hypertension, Z00.00 - Encounter for general adult medical examination without abnormal findings TSH reflex Free T4 6 Months E78.2 - Mixed hyperlipidemia, F41.9 - Anxiety disorder, unspecified, I10 - Essential (primary) hypertension, Z00.00 - Encounter for general adult medical examination without abnormal findings Referrals Cologuard Test Z12.11 - Encounter for screening for malignant neoplasm of colon, Z12.12 - Encounter for screening for malignant neoplasm of rectum Medications: Refilled amlodipine 5 mg PO DAILY 90 tabs 3RF buspirone 20 mg (2 x 10 mg) PO BID 360 tabs 3RF atorvastatin 20 mg PO BEDTIME 90 tabs 3RF Coding Level of Care Code Est Pt Prev Care 40-64y(18255) Diagnoses HTN (hypertension) I10 Combined hyperlipidemia E78.2 Annual physical exam Z00.00 Anxiety F41.9 Additional Codes HAILEY-7 Assessment Billing - HAILEY-7 Assessment Tool: HAILEY-7 Assessment 67939 ([id number])
== END 2023-05-11 14:24 | disposition home or self-care (01) ==
PROVIDERS: PCP Internal Medicine; Visit Provider Internal Medicine
DX: Z00.00 Encounter for general adult medical examination without abnormal findings (principal); I10 Essential (primary) hypertension; E78.2 Mixed hyperlipidemia; F41.9 Anxiety disorder, unspecified; Z87.442 Personal history of urinary calculi
CPT/HCPCS: 99396

== ENCOUNTER 2023-12-08 23:37 | Emergency (ER) | payer OTHER, SELFPAY ==
[2023-12-08 23:46] VITALS: BP 153/92; PULSE 80; RESP 16; TEMP 36.6; O2SAT 99; BMI 27.0
--- NOTE | 2023-12-09 00:54 | ED_ITS ---
HPI - General Adult General Chief complaint: General Medical Stated complaint: right side of face swollen/bite Time Seen by Provider: 12/09/23 00:29 Source: patient Mode of arrival: ambulatory Limitations: no limitations History of Present Illness ED Provider: FERNANDO NICK narrative: 53 yo female PMH of HSV here with c/o 1 week possible bite to R lower jawline but worsening rash now increase in rash and eruption of itching burning vesicles no fevers, no diff swallowing - tried hydrogen peroxide no relief. Has not had shingles before. MD complaint: rash Onset (ago): day(s) (7) Location: face Radiation: non-radiation Severity: moderate Quality: burning Pain Consistency: constant Relieving factors: none Exacerbating factors: other (palpation) Associated symptoms: denies other symptoms Treatments prior to arrival: other (hydrogen peroxide) Related Data Home Medications ?Medication ?Instructions ?Recorded ?Confirmed fluocinonide 0.05 % topical 1 appl topical BID PRN 02/23/21 05/11/23 solution valacyclovir 1 gram tablet 0 mg PO 03/08/22 05/11/23 ixekizumab 80 mg/mL subcutaneous 80 mg subcut Q4W 04/12/22 05/11/23 auto-injector (Taltz Autoinjector (2 Pack)) Previous Rx's ?Medication ?Instructions ?Recorded lorazepam 0.5 mg tablet 0.5 mg PO DAILY PRN anxiety #20 07/28/22 tabs amlodipine 5 mg tablet 5 mg PO DAILY #90 tabs 05/11/23 atorvastatin 20 mg tablet 20 mg PO BEDTIME #90 tabs 05/11/23 buspirone 10 mg tablet 20 mg (2 x 10 mg) PO BID #360 tabs 05/11/23 cephalexin 500 mg capsule 500 mg PO QID 7 days #28 caps 12/09/23 doxycycline hyclate 100 mg capsule 100 mg PO BID 7 days #14 caps 12/09/23 mupirocin 2 % topical ointment 1 appl topical BID 7 days #15 grams 12/09/23 valacyclovir 1 gram tablet 1,000 mg PO Q8H 7 days #21 tabs 12/09/23 (Valtrex) Allergies Allergy/AdvReac Type Severity Reaction Status Date / Time No Known Allergies Allergy Verified 12/08/23 23:48 Review of Systems Review of Systems: Constitutional : No Fever, No Chills ENT/Mouth : No sore throat, No Rhinorrhea Eyes: No Eye Pain, No Swelling, No Redness Cardiovascular : No Chest Pain, No SOB Respiratory : No Cough, No Sputum Gastrointestinal : No Nausea, No Vomiting, No Diarrhea, No abdominal Pain Genitourinary : No Dysuria, No Hematuria Musculoskeletal : No joint pain, No Myalgias, No Joint Swelling Skin : pos Skin Lesions, positive skin rash Neuro : No Weakness, No Numbness, No Headache Psych : No Anxiety, No Depression All other systems reviewed and are negative [facility] Past Medical History Attestation statement: The following information was validated with the patient. Source: old records reviewed Medical History HTN (hypertension) Kidney stone Menopausal disorder Palpitations Anxiety Annual physical exam Surgical History History of section History of tubal ligation Family History Family History Father CVD (cardiovascular disease) History of heart attack Mother HTN (hypertension) Maternal Grandmother Aneurysm Maternal Grandfather Myocardial infarction Maternal Grandmother Aneurysm Paternal Grandfather Myocardial infarction CVD (cardiovascular disease) Paternal Grandmother Aneurysm Paternal Uncle CVD (cardiovascular disease) Myocardial infarction Brother No problems noted. Daughter No problems noted. Social History [facility] Alcohol intake: current Alcohol intake frequency: a few times a month Patient Tobacco Use Status: Current everyday Tobacco user Cigarettes Per Day: 3 Years Smoked: 20 years e-Cigarette/Vaping Use: Never Used Advance Directives: No Advance Directives Information Provided: No Do you have a plan to hurt others: No Plan Current occupational status: employed Cognitive needs: No Hearing needs: No Vision needs: Yes Physical Exam ED Vital Signs: Vital Signs - 24 hr 12/08/23 23:46 Temperature 97.9 F Pulse Rate 80 Respiratory Rate 16 Blood Pressure 153/92 H Pulse Oximetry 99 Oxygen Delivery Method Room Air BMI result Body Mass Index 27.0 Appearance: Alert. Oriented X3. No acute distress. Eyes: Pupils equal, round and reactive to light. ENT: Pharynx normal. R lower jawline clear firm vesicles noted in small patches one larger lesion noted tender to touch does not cross midline mostly on jaw line surrounding erythema no fluctuance noted no submandibular swelling normal voice no droolling Neck: Normal inspection. Neck supple. CVS: Pulses normal. Respiratory: No respiratory distress. Abdomen: Soft and nontender. Skin: Skin warm and dry. Normal skin color. Extremities: No lower extremity edema. Neuro: Oriented X 3. No motor deficit. No sensory deficit. Medical Decision Making Medical Decision Making MDM Narrative: 53 yo female with HTN, prior HSV here with R lower jawline redness and vesicles appears herpetic in nature no abscess but possible secondary cellulitis at this time will need dual coverage start valtrex and abx - strict precautions to return. She is not toxic appearing. No signs of deeper space infection. Differential Diagnosis Differential Diagnoses: The differential diagnosis associated with the presentation includes shingles, dermatitis, cellulitis Admission/Observation Consideration of admission/observation: Escalation of care including admission/observation considered not toxic can be managed with oral medications External Record Review External record reviewed: Office record Prescription Management I considered prescription management with: Antiviral and Antibiotic Discharge Plan Discharge Clinical Impression: Cellulitis of face, Acute vesicular dermatitis Patient Disposition: Home, Self-Care Instructions: Cellulitis (ED), Dermatitis (ED) Additional Instructions: rash appears as cellulitis but you also have vesicles concerning for possible shingles will treat for both avoid sun exposure for the next 5 days return for worsening pain, swelling, fevers, drainage take all medications seek care if you have lesions on the nose or eyes Prescriptions: New valacyclovir [Valtrex] 1 gram tablet 1,000 mg PO Q8H 7 Days Qty: 21 0RF cephalexin 500 mg capsule 500 mg PO QID 7 Days Qty: 28 0RF doxycycline hyclate 100 mg capsule 100 mg PO BID 7 Days Qty: 14 0RF mupirocin 2 % ointment 1 appl topical BID 7 Days Qty: 15 0RF No Action Taltz Autoinjector (2 Pack) 80 mg/mL auto-injector 80 mg subcut Q4W buspirone 10 mg tablet 20 mg PO BID Qty: 360 3RF atorvastatin 20 mg tablet 20 mg PO BEDTIME Qty: 90 3RF amlodipine 5 mg tablet 5 mg PO DAILY Qty: 90 3RF lorazepam 0.5 mg tablet 0.5 mg PO DAILY PRN (Reason: anxiety) Qty: 20 0RF fluocinonide 0.05 % solution 1 appl topical BID PRN valacyclovir 1 gram tablet 0 mg PO Stand Alone Forms: Work/School Release Print Language: Swedish
[2023-12-09] MEDS: cephALEXin 500 MG CAPSULE PO (01:02)
[2023-12-09] MEDS: Ondansetron ODT 4 MG TAB.RAPDIS TRANSLINGU (01:02)
[2023-12-09] MEDS: valACYclovir HCL 1,000 MG TABLET 1000 MG PO (01:02)
[2023-12-09] MEDS: Doxycycline Monohydrate 100 MG CAPSULE PO (01:02)
[2023-12-09 01:06] VITALS: BP 153/92; PULSE 80; RESP 16; TEMP 36.6; O2SAT 99
== END 2023-12-09 01:07 | disposition home or self-care (01) ==
PROVIDERS: Emergency Provider Emergency Medicine; PCP Internal Medicine
DX: L03.211 Cellulitis of face (principal); B00.1 Herpesviral vesicular dermatitis; F17.210 Nicotine dependence, cigarettes, uncomplicated; Z79.899 Other long term (current) drug therapy
CPT/HCPCS: 99282

== ENCOUNTER 2024-01-05 11:06 | Outpatient (AMB) | payer OTHER, SELFPAY ==
--- NOTE | 2024-01-05 11:14 | MHC.OFFWIV ---
Intake Vital Signs 01/05/24 11:15 Height 5 ft 4 in Weight 155 lb BMI 26.6 BP 126/82 Blood Pressure Location Rt brachial Position Sitting Pulse 70 Pulse Source Pulse Oximeter Temp 98.1 F Temp Source Oral Pulse Oximetry (%) 98 Oxygen Delivery Method Room Air Intake Visit Reasons: EP LT eye swelling/puffy Patient Tobacco Use Status: Current everyday Tobacco user Allergies No Known Allergies Allergy (Verified 01/05/24 11:14) Do you need a note to return to daycare/school/sports/work: No HPI EP LT eye swelling/puffy HPI Details pt c/o LT eye swelling. Started Mildly tender and now has also broken out with sores at her mouth PFSH Medical History HTN (hypertension) Kidney stone Menopausal disorder Palpitations Anxiety Annual physical exam Surgical History History of section History of tubal ligation Family History Father CVD (cardiovascular disease) History of heart attack Mother HTN (hypertension) Maternal Grandmother Aneurysm Maternal Grandfather Myocardial infarction Maternal Grandmother Aneurysm Paternal Grandfather Myocardial infarction CVD (cardiovascular disease) Paternal Grandmother Aneurysm Paternal Uncle CVD (cardiovascular disease) Myocardial infarction Brother No problems noted. Daughter No problems noted. Social History Housing: Condominium Alcohol intake: current Alcohol intake frequency: a few times a month Patient Tobacco Use Status: Current everyday Tobacco user Cigarettes Per Day: 3 Years Smoked: 20 years e-Cigarette/Vaping Use: Never Used Current occupational status: employed Cognitive needs: No Hearing needs: No Vision needs: Yes Female Reproductive History Menstrual Age of Menarche: 13 Review of Systems Const Details: No fevers or chills at present No vision changes Eyes Details: No vision changes or globe pain Physical Exam Vital Signs: Last Vital Signs Temp 98.1 F 01/05/24 11:15 Pulse 70 01/05/24 11:15 BP 126/82 01/05/24 11:15 Pulse Ox 98 01/05/24 11:15 Oxygen Delivery Method Room Air 08/17/24 11:15 BMI result Body Mass Index 26.6 Const General: no acute distress and well developed Nutritional Appearance: well nourished Orientation/consciousness: patient oriented x3 HEENT Other: Cold sores/Herpetic lesions at lips Head: Yes normocephalic and Yes atraumatic Eyes Other: Left eye erythema and swelling with expansion on to upper cheek General: appearance normal, both eyes and all related structures Pupils: Equal, round and reactive pupils present EOM: EOMs intact bilaterally Resp Effort & Inspection: normal respiratory effort Neuro General: patient oriented x3 and gait normal Cranial nerves: Yes Equal, round and reactive pupils present Psych Affect: normal affect Assessment & Plan Assessment & Plan (1) Periorbital cellulitis of left eye: Code(s): L03.213 - Periorbital cellulitis Plan: Script sent for cephalexin Cool compresses Go to ED if any vision changes or globe pain (2) Cold sore: Code(s): B00.1 - Herpesviral vesicular dermatitis Plan: Valacyclovir sent. Patient has used this before Medications: New cephalexin 500 mg PO Q12H 10 days 20 caps 0RF valacyclovir 500 mg PO Q12H 10 days 20 tabs 0RF Coding Level of Care Code Est Pt Level 3 (93295) Diagnoses Periorbital cellulitis of left eye L03.213 Cold sore B00.1
[2024-01-05 11:15] VITALS: BP 126/82; PULSE 70; TEMP 36.7; O2SAT 98; BMI 26.6
== END 2024-01-05 12:15 | disposition home or self-care (01) ==
PROVIDERS: PCP Internal Medicine; Visit Provider Family Medicine
DX: L03.213 Periorbital cellulitis (principal); B00.1 Herpesviral vesicular dermatitis
CPT/HCPCS: 99051; 99213

== ENCOUNTER 2024-02-07 11:52 | Outpatient (AMB) | payer OTHER, SELFPAY ==
[2024-02-07 11:55] VITALS: BP 146/102; PULSE 70; BMI 26.5
--- NOTE | 2024-02-07 11:55 | A.OFFVIS_ITS ---
Vital Signs 02/07/24 11:55 Height 5 ft 4 in Weight 154 lb 5.177 oz BMI 26.5 BP 146/102 H Blood Pressure Location Rt brachial Position Sitting Pulse 70 Intake Visit Reasons: Positive Cologuard Intake Note: Patient in office today for colonoscopy consults s/p positive cologuard. CC: Patient reports constipation alternating with diarrhea, occasional traces of blood in her stools, and having a hemorrhoid. Allergies No Known Allergies Allergy (Verified 02/07/24 12:04) HPI HPI Positive Cologuard: Details: Assessment & Plan (1) Loose stools: ?Code(s): R19.5 - Other fecal abnormalities ?Plan: She is feeling better but the stress in her life is improved. Tried the dicyclomine, but not for long before things evened out on their own. Not called for scope yet.? This was ordered because she had a change from daily inform bowel movements to multiple daily movements (which have now resolved) and some drops of blood in the stools. This will be her first colonoscopy There are no prior problems with anesthesia or sedation. She denies any cardiac or respiratory problems. There are no infectious disease problems. No FHX crv or polyps or other diseases. ROV 3 mos. (2) Rectal bleed: ?Code(s): K62.5 - Hemorrhage of anus and rectum COLONOSCOPY Not yet scheduled or obtained, order is NOT in computer [facility]: TODAY'S VISIT PATIENT HAS BEEN LOST FOLLOW-UP SINCE 03/2022, AND NOW IT APPEARS SHE HAS A POSITIVE COLOGUARD TEST This will be her first colonoscopy There are no prior problems with anesthesia or sedation. She denies any cardiac or respiratory problems. There are no infectious disease problems. Her brother goes for colonoscopies q3 years so likely has polyps. Her only new health issue is menopause. [facility] Medical History (Updated 03/10/24 @ 18:06 by PAT Shook) Strep pharyngitis Annual physical exam Hematuria Right flank pain Hx of renal calculi Kidney stone Otitis media, right Encounter for IUD removal Well woman exam HTN (hypertension) Menopausal disorder Palpitations Anxiety Surgical History History of section History of tubal ligation Family History Father CVD (cardiovascular disease) History of heart attack Mother HTN (hypertension) Maternal Grandmother Aneurysm Maternal Grandfather Myocardial infarction Maternal Grandmother Aneurysm Paternal Grandfather Myocardial infarction CVD (cardiovascular disease) Paternal Grandmother Aneurysm Paternal Uncle CVD (cardiovascular disease) Myocardial infarction Brother No problems noted. Daughter No problems noted. Social History Housing: Condominium Alcohol intake: current Alcohol intake frequency: a few times a month Patient Tobacco Use Status: Current everyday Tobacco user Cigarettes Per Day: 3 Years Smoked: 20 years e-Cigarette/Vaping Use: Never Used Current occupational status: employed Cognitive needs: No Hearing needs: No Vision needs: Yes Female Reproductive History Menstrual Age of Menarche: 13 Review of Systems Const Denies fatigue, Denies fever(s), Denies night sweats, Denies poor appetite and Denies weight loss ENT Reports Normal hearing present, Denies dysphagia, Denies odynophagia, Denies throat swelling and Denies tongue swelling Card Reports no additional complaints Resp Reports no additional complaints GI Details: Denies abdominal pain, Denies melena, Denies bloating, Reports hematochezia, Denies constipation, Denies GI cramping, Denies dysphagia, Denies excessive flatus, Denies early satiety, Denies heartburn, Denies diarrhea, Denies nausea, Denies odynophagia, Denies vomiting and Denies hematemesis Skin/Breast Denies pruritus, Denies lesions, Denies rash and Denies jaundice Neuro Reports Normal hearing present and Denies Abnormal speech present Endo Denies fatigue Aller/Immun Denies throat swelling and Denies tongue swelling Physical Exam Vital Signs: Last Vital Signs Pulse 70 02/07/24 11:55 BP 146/102 H 02/07/24 11:55 BMI result Body Mass Index 26.5 Const General: cooperative, no acute distress, well developed and well groomed Nutritional Appearance: average body habitus and well nourished Orientation/consciousness: oriented to person, oriented to place and oriented to time Limitations: No language barrier HEENT Head: Yes normocephalic and Yes atraumatic Eyes General: appearance normal, both eyes and all related structures Pupils: Equal, round and reactive pupils present Neck Neck: Yes normal visual inspection and Yes no lymphadenopathy Thyroid: Thyroid normal Resp Effort & Inspection: normal respiratory effort and able to speak in complete sentences Auscultation: clear to auscultation bilaterally Cardio Rate: regular rate Rhythm: regular rhythm Heart sounds: Normal, physiologic split S2 sound present Peripheral pulses: radial pulses present and posterior tibial pulses present GI Inspection: No distended, No Abdominal panniculus present, Yes obesity and Yes striae Palpation (GI): Soft to palpation, nontender, no guarding, not rigid and No hepatosplenomegaly present Percussion: Yes normal to percussion Auscultation: normal bowel sounds Rectal Exam - Female: deferred Skin General skin exam: no rashes or lesions noted, turgor normal, skin not dry, no jaundice, No spider nevi and no striae Rashes: no rashes Nails: normal Neuro General: oriented to person, oriented to place and oriented to time Cranial nerves: Yes Equal, round and reactive pupils present and Yes Normal hearing present Speech: No Abnormal speech present Extrem General: Yes normal to inspection, No clubbing, No cyanosis and No edema Psych Appearance: grossly normal and well kempt Mental Status: mental status grossly normal Speech and movement: Normal speech and movement present Affect: normal affect Attitude: cooperative Thought process: Normal thought process present and not confabulating Thought content: Normal thought content present Insight: Fair insight present (Psych) Judgement: Fair judgement present (Psych) Assessment & Plan Assessment & Plan (1) Positive colorectal cancer screening using Cologuard test: Code(s): R19.5 - Other fecal abnormalities Category: Medical (2) Loose stools: Code(s): R19.5 - Other fecal abnormalities Category: Medical (3) Pre-op examination: Code(s): Z01.818 - Encounter for other preprocedural examination Category: Medical (4) Family history of polyps in the colon: Comment: Brother Code(s): Z83.719 - Family history of colon polyps, unspecified Category: Medical Plan PATIENT HAS BEEN LOST FOLLOW-UP SINCE 03/2022, AND NOW IT APPEARS SHE HAS A POSITIVE COLOGUARD TEST This will be her first colonoscopy There are no prior problems with anesthesia or sedation. She denies any cardiac or respiratory problems. There are no infectious disease problems. Her brother goes for colonoscopies q3 years so likely has polyps. Her only new health issue is menopause. Orders: Orders Colonoscopy - GI Use Only 02/07/24 R19.5 - Other fecal abnormalities Comprehensive Met. Panel 02/07/24 Z01.818 - Encounter for other preprocedural examination Complete Blood Count Auto Diff 02/07/24 Z01.818 - Encounter for other preprocedural examination Medications: New sodium,potassium,mag sulfates 17.5-3.13-1.6 gram (Suprep Bowel Prep Kit) 480 mL orally; FOR COLONOSCOPY PREP 354 mL 0RF Coding Level of Care Code New Pt Level 3 (39091) Diagnoses Positive colorectal cancer screening using Cologuard test R19.5 Loose stools R19.5 Pre-op examination Z01.818 Family history of polyps in the colon Z83.719
== END 2024-02-07 12:24 | disposition home or self-care (01) ==
PROVIDERS: PCP Internal Medicine; Visit Provider Nurse Practitioner
DX: Z01.818 Encounter for other preprocedural examination (principal); Z12.11 Encounter for screening for malignant neoplasm of colon; R19.5 Other fecal abnormalities; Z83.719 Family history of colon polyps, unspecified
CPT/HCPCS: 99212

== ENCOUNTER → 2024-02-07 11:52 | Outpatient (BNVA) | payer OTHER, SELFPAY | PROVIDERS: PCP Internal Medicine; Visit Provider Nurse Practitioner | DX: Z01.818 Encounter for other preprocedural examination (principal); K59.00 Constipation, unspecified; R19.7 Diarrhea, unspecified; K64.9 Unspecified hemorrhoids; R19.5 Other fecal abnormalities; Z83.719 Family history of colon polyps, unspecified | CPT/HCPCS: 99212 ==

== ENCOUNTER 2024-06-23 10:02 | Outpatient (AMB) | payer OTHER, SELFPAY ==
--- NOTE | 2024-06-23 10:21 | MHC.PC.OV ---
Vital Signs 06/23/24 10:23 Height 5 ft 4 in Weight 158 lb BMI 27.1 BP 122/82 Blood Pressure Location Rt brachial Position Sitting Respiration 18 Pulse 62 Pulse Source Pulse Oximeter Temp 98.4 F Temp Source Oral Pulse Oximetry (%) 97 Oxygen Delivery Method Room Air Intake Visit Reasons: Annual PE Intake Note: Pt is here today for PE. Allergies No Known Allergies Allergy (Verified 06/23/24 10:24) Medication List - Last Reconciled 06/23/24 by Priya Varela MD amlodipine 5 mg PO DAILY atorvastatin 20 mg PO BEDTIME buspirone 20 mg (2 x 10 mg) PO BID calcipotriene 0.005% 1 appl topical QAM fluocinonide 0.05% 1 appl topical BID PRN ixekizumab (Taltz Autoinjector (2 Pack)) 80 mg subcut Q4W lorazepam 0.5 mg PO DAILY PRN mupirocin 2% 1 appl topical BID 7 days sodium,potassium,mag sulfates 17.5-3.13-1.6 gram (Suprep Bowel Prep Kit) DILUTE each bottle with 16oz of water; drink first bottle 5pm evening before procedure AND second bottle at 11pm; follow each bottle with at least 32 oz.of water within 1 hour after each bottle sodium,potassium,mag sulfates 17.5-3.13-1.6 gram (Suprep Bowel Prep Kit) 480 mL orally; FOR COLONOSCOPY PREP valacyclovir 500 mg PO Q12H 10 days Tobacco use date assessed: 06/23/24 Dental Screening Dental Screen Date: 06/23/24 Did you have a dental visit in the last 12 months?: Yes Did you have a dental problem in the last 6 months where you did not have access to dental care?: No Was dental information given to patient?: Patient has dentist HPI Annual PE HPI Details Patient presents for physical [facility] Medical History (Updated 06/23/24 @ 11:22 by Priya Varela MD) Annual physical exam Strep pharyngitis Hematuria Right flank pain Hx of renal calculi Kidney stone Otitis media, right Encounter for IUD removal Well woman exam HTN (hypertension) Menopausal disorder Palpitations Anxiety Surgical History History of section History of tubal ligation Family History Father CVD (cardiovascular disease) History of heart attack Mother HTN (hypertension) Maternal Grandmother Aneurysm Maternal Grandfather Myocardial infarction Maternal Grandmother Aneurysm Paternal Grandfather Myocardial infarction CVD (cardiovascular disease) Paternal Grandmother Aneurysm Paternal Uncle CVD (cardiovascular disease) Myocardial infarction Brother No problems noted. Daughter No problems noted. Social History Housing: Condominium Alcohol intake: current Alcohol intake frequency: a few times a month Patient Tobacco Use Status: Current everyday Tobacco user Cigarettes Per Day: 3 Years Smoked: 20 years e-Cigarette/Vaping Use: Never Used Current occupational status: employed Cognitive needs: No Hearing needs: No Vision needs: Yes Female Reproductive History Menstrual Age of Menarche: 13 Questionnaire PHQ-9 Over the last 2 weeks, how often have you been bothered by any of the following problems? 1. Little interest or pleasure in doing things: several days 2. Feeling down, depressed, or hopeless: several days 3. Trouble falling or staying asleep, or sleeping too much: several days 4. Feeling tired or having little energy: several days 5. Poor appetite or overeating: not at all 6. Feeling bad about yourself - or that you are a failure or have let yourself or your family down: not at all 7. Trouble concentrating on things, such as reading the newspaper or watching television: not at all 8. Moving or speaking so slowly that other people could have noticed. Or the opposite - being so fidgety or restless that you have been moving around a lot more than usual: not at all 9. Thoughts that you would be better off or of hurting yourself in some way: not at all Total score: 4 Depression Screening Interpretation: Negative Depression Screening Done: Yes 29143 - PHQ-9 Billing: Yes Source: Developed by Drs. Hubert Sutherland, Lauren Lares, Ben Del Real and colleagues, with an educational raymond from [employer]. Thrive Questionnaire Date Thrive assessed: 06/23/24 I am a: Patient What is your living situation today?: I have a steady place to live Within the past 12 months, did the food you bought not last and you didn't have the money to get more?: Never true Within the past 12 months, did you worry whether your food would run out before you got money to buy more?: Never true Do you have trouble paying for medicines?: No Do you have trouble getting transportation to medical appointments?: No Do you have trouble paying your heating and electricity bill?: No Do you have trouble taking care of your child, family member or friend?: No Do you have trouble with day-to-day activities such as bathing, preparing meals, shopping, managing finances, etc.?: No Are you currently unemployed and looking for a job?: No Are you interested in more education?: No Please select the resources that you would like help with: None Currently or been in a relationship where the following occur: No concerns reported THRIVE Score: 0 AUDIT C Alcohol Use Questionnaire (AUDIT-C) 1. How often do you have a drink containing alcohol?: 2-3 times a week 2. How many drinks containing alcohol do you have on a typical day when you are drinking?: 1 or 2 3. How often do you have six or more drinks on one occasion?: Less than monthly Total Score: 4 HAILEY-7 AMB Questionnaire HAILEY-7 Date HAILEY - 7 assessed: 05/11/23 Feeling nervous, anxious, or on edge: 1 = Several days Not being able to stop or control worryin = Several days Worrying too much about different things: 0 = Not at all Trouble relaxin = Not at all Being so restless that it is hard to sit still: 0 = Not at all Becoming easily annoyed or irritable: 1 = Several days Feeling afraid as if something awful might happen: 0 = Not at all Total HAILEY-7 score (0-4 normal; 5-9 mild; 10-14 moderate; 15-21 severe): 3 Source: Developed by Drs. Hubert Sutherland, Lauren Lares, Ben Del Real and colleagues, with an educational raymond from [employer]. Review of Systems Const All systems reviewed & are unremarkable except as noted in HPI and below Eyes Reports no additional complaints ENT Reports no additional complaints Card Reports no additional complaints Resp Reports no additional complaints GI Reports no additional complaints Reports no additional complaints Physical exam (Primary Care) Vital Signs: Last Vital Signs Temp 98.4 F 06/23/24 10:23 Pulse 62 06/23/24 10:23 Resp 18 06/23/24 10:23 BP 122/82 06/23/24 10:23 Pulse Ox 97 06/23/24 10:23 Oxygen Delivery Method Room Air 06/23/24 10:23 BMI result Body Mass Index 27.1 Tobacco/Smoking Status: Tobacco use Status Tobacco use date assessed 06/23/24 06/23/24 10:27 Patient Tobacco Use Status Current everyday Tobacco 06/23/24 10:27 e-Cigarette/Vaping Use Never Used 06/23/24 10:27 PHQ-9: PHQ-9 Score PHQ-9: Total score 4 06/23/24 10:27 Depression Screening Interpretation: Negative Thrive Assessment: Date of Thrive Assessment Date Thrive assessed 06/23/24 06/23/24 10:27 Currently or been in a relationship where the following occur: No concerns reported Const General: no acute distress HENMT Head: Yes normal to inspection Ears: hearing grossly normal bilaterally Face and sinus: Yes normal facial exam Mouth: Normal oral and palatal mucosa present Eyes General: appearance normal, both eyes and all related structures Neck Neck: Yes no lymphadenopathy and Yes supple Resp Effort & Inspection: normal respiratory effort Auscultation: clear to auscultation bilaterally Cardio Rhythm: regular rhythm Heart sounds: S1 normal heart sound present and S2 normal heart sound present GI Inspection: Yes normal to inspection Palpation (GI): Soft to palpation Percussion: Yes normal to percussion Auscultation: normal bowel sounds Coding Level of Care Code Est Pt Prev Care 40-64y(13946) Diagnoses HTN (hypertension) I10 Anxiety F41.9 Annual physical exam Z00.00 Additional Codes PHQ-9 - 80014 - PHQ-9 Billing: Yes ([id number]) Assessment & Plan Assessment & Plan (1) HTN (hypertension): Code(s): I10 - Essential (primary) hypertension Category: Medical Plan: Continue amlodipine (2) Anxiety: Code(s): F41.9 - Anxiety disorder, unspecified Category: Medical Plan: Continue BuSpar (3) Annual physical exam: Code(s): Z00.00 - Encounter for general adult medical examination without abnormal findings Category: Medical Plan: Well-balanced diet regular physical activity discussed with the patient she is up-to-date with the mammogram at [facility] and will have a colonoscopy at [place]. Patient had negative Pap smear and HPV in 2021 Orders: Orders TSH reflex Free T4 Today F41.9 - Anxiety disorder, unspecified, I10 - Essential (primary) hypertension, Z00.00 - Encounter for general adult medical examination without abnormal findings Hemoglobin A1c Today F41.9 - Anxiety disorder, unspecified, I10 - Essential (primary) hypertension, Z00.00 - Encounter for general adult medical examination without abnormal findings Vitamin D 25-OH Total Today F41.9 - Anxiety disorder, unspecified, I10 - Essential (primary) hypertension, Z00.00 - Encounter for general adult medical examination without abnormal findings Lipid Panel Today F41.9 - Anxiety disorder, unspecified, I10 - Essential (primary) hypertension, Z00.00 - Encounter for general adult medical examination without abnormal findings UA w Microscopic Today F41.9 - Anxiety disorder, unspecified, I10 - Essential (primary) hypertension, Z00.00 - Encounter for general adult medical examination without abnormal findings Comprehensive [place]. Panel Fast Today F41.9 - Anxiety disorder, unspecified, I10 - Essential (primary) hypertension, Z00.00 - Encounter for general adult medical examination without abnormal findings Complete Blood Count Auto Diff Today F41.9 - Anxiety disorder, unspecified, I10 - Essential (primary) hypertension, Z00.00 - Encounter for general adult medical examination without abnormal findings Comprehensive [place]. Panel Fast 1 Year E78.2 - Mixed hyperlipidemia, I10 - Essential (primary) hypertension, Z00.00 - Encounter for general adult medical examination without abnormal findings Lipid Panel 1 Year E78.2 - Mixed hyperlipidemia, I10 - Essential (primary) hypertension, Z00.00 - Encounter for general adult medical examination without abnormal findings Complete Blood Count Auto Diff 1 Year E78.2 - Mixed hyperlipidemia, I10 - Essential (primary) hypertension, Z00.00 - Encounter for general adult medical examination without abnormal findings TSH reflex Free T4 1 Year E78.2 - Mixed hyperlipidemia, I10 - Essential (primary) hypertension, Z00.00 - Encounter for general adult medical examination without abnormal findings Vitamin D 25-OH Total 1 Year E78.2 - Mixed hyperlipidemia, I10 - Essential (primary) hypertension, Z00.00 - Encounter for general adult medical examination without abnormal findings Medications: Refilled amlodipine 5 mg PO DAILY 90 tabs 3RF buspirone 20 mg (2 x 10 mg) PO BID 360 tabs 3RF atorvastatin 20 mg PO BEDTIME 90 tabs 3RF
[2024-06-23 10:23] VITALS: BP 122/82; PULSE 62; RESP 18; TEMP 36.9; O2SAT 97; BMI 27.1
== END 2024-06-23 11:22 | disposition home or self-care (01) ==
PROVIDERS: PCP Internal Medicine; Visit Provider Internal Medicine
DX: I10 Essential (primary) hypertension (principal); F41.9 Anxiety disorder, unspecified; Z00.00 Encounter for general adult medical examination without abnormal findings

== ENCOUNTER 2024-06-23 10:02 | Outpatient (REF) | payer OTHER, SELFPAY ==
[2024-06-23 13:21] LABS: MANUAL DIFF FLAG NO
[2024-06-23 13:22] LABS: Appearance Urine Clear; Color Urine Yellow; Glucose Urine UA Negative (Negative); Leukocyte Esterase Urine Negative (Negative); Nitrite Urine Negative (Negative); Urine Blood Negative (Negative); Urine Ketones Negative (Negative); Urine Protein Negative (Neg-Trace)
[2024-06-23 13:30] LABS: Bacteria Urine None Seen (None Seen); Hyaline Casts Urine 0-2 /LPF (0-2); RBC Urine 0-2 /HPF (0-2); Squamous Epithelial Cell Urine 0-2 /HPF (0-2); WBC Urine 0-5 /HPF (0-5)
[2024-06-23 13:36] LABS: Basophils Absolute Auto 0.1 X10*3/uL (0.0-0.2); Basophils Percent Auto 0.6 % (0-2); Eosinophils Absolute Auto 0.2 X10*3/uL (0.0-0.4); Eosinophils Percent Auto 1.7 % (0-4); Hematocrit 39.6 % (37.0-47.0); Imm Gran Abs Auto 0.03 X10*3/uL (0.00-0.03); Imm Gran Pct Auto 0.3 % (0.0-0.4); Lymphocytes Absolute Auto 1.4 X10*3/uL (1.2-4.9); Lymphocytes Percent Auto 14.4 % (20-40); Mean Corpuscular HGB Conc 35.4 g/dl (31.0-35.0); Mean Corpuscular Hemoglobin 33.7 pg (27.0-33.0); Mean Corpuscular Volume 95.2 fL (80.0-98.0); Mean Platelet Volume 9.5 fL (9.4-12.3); Monocytes Absolute Auto 0.7 X10*3/uL (0.1-1.2); Monocytes Percent Auto 6.8 % (2-11); Neutrophils Absolute Auto 7.5 x10*3/uL (2.0-8.3); Neutrophils Percent Auto 76.2 % (45-73); Platelet Count 292 X10*3/uL (160-400); Red Blood Count 4.16 X10*6/uL (4.20-5.50); Red Cell Distribution Width 13.2 % (11.0-16.0); White Blood Count 9.8 X10*3/uL (4.8-10.8)
[2024-06-23 14:16] LABS: Estimated Average Glucose 105 mg/dL; Hemoglobin A1C 182.7374 umol/L; Hemoglobin A1c % 5.3 % (<6.0); Total Hemoglobin (HGBA1C) 5326.2001 umol/L
[2024-06-23 14:52] LABS: Alanine Aminotransferase 39 U/L (0-31); Anion Gap 14 (12-20); Aspartate Amino Transferase 47 U/L (5-31); Bilirubin Total 0.6 mg/dL (0.0-1.0); Blood Urea Nitrogen 16 mg/dL (9-16); Calcium 9.3 mg/dL (8.4-10.2); Carbon Dioxide 21 mmol/L (22-29); Chloride 109 mmol/L (96-108); Cholesterol 159 mg/dL (<200); Estimated Glomerular Filt Rate > 60; Glucose Fasting 99 mg/dL (60-99); HDL Cholesterol 66 mg/dL (>40); LDL Cholesterol Calculated 38 mg/dL (<100); Potassium 3.4 mmol/L (3.3-5.1); Sodium 141 mmol/L (135-145); Total Protein 7.4 g/dL (6.5-8.0); Triglycerides 276 mg/dL (<150); Vitamin D 25-OH Total 149.9 ng/mL (>30)
[2024-06-23 16:51] LABS: Alkaline Phosphatase 147 U/L (39-117)
== END 2024-06-23 10:03 | disposition home or self-care (01) ==
LOC: HO.HMGCLDS 10:02
PROVIDERS: PCP Internal Medicine; Visit Provider Internal Medicine
DX: Z00.00 Encounter for general adult medical examination without abnormal findings (principal); I10 Essential (primary) hypertension; E78.2 Mixed hyperlipidemia; F41.9 Anxiety disorder, unspecified; Z79.899 Other long term (current) drug therapy
CPT/HCPCS: 36415; 80053; 80061; 81001; 82306; 83036; 84443; 85025; 96127; 99396

== ENCOUNTER 2024-06-30 12:32 | Outpatient (REF) | payer OTHER, SELFPAY | END 2024-06-30 12:33 | disposition home or self-care (01) | LOC: HO.MAMMO 12:32 | PROVIDERS: PCP Internal Medicine; Visit Provider Internal Medicine | DX: Z12.31 Encounter for screening mammogram for malignant neoplasm of breast (principal) | CPT/HCPCS: 77063; 77067 ==

== ENCOUNTER → 2024-06-30 12:45 | Outpatient (BNV) | payer OTHER, SELFPAY | PROVIDERS: PCP Internal Medicine; Visit Provider Internal Medicine | DX: Z12.31 Encounter for screening mammogram for malignant neoplasm of breast (principal) | CPT/HCPCS: 77063; 77067 ==

== ENCOUNTER 2024-07-19 21:15 | Emergency (ER) | payer OTHER, SELFPAY ==
--- NOTE | ~2024-07-19 | XR_ITS ---
CLINICAL HISTORY: cough 1 view chest x-ray Comparison: CR - CHEST 1 VIEW - 04/07/18 13:55 EST Findings: No consolidation or effusion. Normal size heart. No acute fracture. IMPRESSION: 1. No acute findings. This document has been electronically signed by: Kg Boudreaux MD on 07/19/2024 23:46:39
[2024-07-19 21:27] VITALS: BP 150/95; PULSE 68; O2SAT 97
[2024-07-19 21:46] LABS: MANUAL DIFF FLAG NO
[2024-07-19 21:48] VITALS: BP 160/87; PULSE 64; RESP 16; TEMP 36.1; O2SAT 98
[2024-07-19 21:50] LABS: Basophils Absolute Auto 0.1 X10*3/uL (0.0-0.2); Basophils Percent Auto 0.9 % (0-2); Eosinophils Absolute Auto 0.2 X10*3/uL (0.0-0.4); Eosinophils Percent Auto 1.9 % (0-4); Hematocrit 36.5 % (37.0-47.0); Hemoglobin 13.1 g/dl (12.0-16.0); Imm Gran Abs Auto 0.02 X10*3/uL (0.00-0.03); Imm Gran Pct Auto 0.3 % (0.0-0.4); Lymphocytes Absolute Auto 1.8 X10*3/uL (1.2-4.9); Lymphocytes Percent Auto 22.3 % (20-40); Mean Corpuscular HGB Conc 35.9 g/dl (31.0-35.0); Mean Corpuscular Volume 97.6 fL (80.0-98.0); Mean Platelet Volume 9.6 fL (9.4-12.3); Monocytes Absolute Auto 0.7 X10*3/uL (0.1-1.2); Monocytes Percent Auto 9.1 % (2-11); Neutrophils Absolute Auto 5.2 x10*3/uL (2.0-8.3); Neutrophils Percent Auto 65.5 % (45-73); Platelet Count 224 X10*3/uL (160-400); Red Blood Count 3.74 X10*6/uL (4.20-5.50); Red Cell Distribution Width 13.7 % (11.0-16.0)
[2024-07-19 22:08] LABS: Alanine Aminotransferase 26 U/L (0-31); Albumin Level 3.7 g/dL (3.5-5.0); Alkaline Phosphatase 122 U/L (39-117); Anion Gap 13 (12-20); Aspartate Amino Transferase 45 U/L (5-31); Bilirubin Total 0.5 mg/dL (0.0-1.0); Blood Urea Nitrogen 14 mg/dL (9-16); Calcium 8.9 mg/dL (8.4-10.2); Carbon Dioxide 22 mmol/L (22-29); Chloride 110 mmol/L (96-108); Creatinine Clr Calc Pharmacy 91.7; Estimated Glomerular Filt Rate > 60; Glucose Random 91 mg/dL (60-115); Potassium 3.5 mmol/L (3.3-5.1); Sodium 141 mmol/L (135-145); Total Protein 6.7 g/dL (6.5-8.0)
[2024-07-19 22:42] LABS: Influenza A PCR NEGATIVE (Negative); Influenza B PCR NEGATIVE (Negative); Resp Syncy Virus RNA Qual PCR NEGATIVE (Negative); SARS COV2 PCR INHOUSE NEGATIVE (Negative)
--- NOTE | 2024-07-20 00:03 | ED_ITS ---
HPI - General Adult General Chief complaint: Upper Respiratory Symptoms Stated complaint: flu like symptoms Time Seen by Provider: 07/19/24 22:33 Source: patient and RN notes reviewed Mode of arrival: EMS Limitations: no limitations History of Present Illness ED Provider: [facility] HPI narrative: 53-year-old female with a past medical history significant for hypertension, anxiety presents for evaluation of cough and shortness of breath. Patient reports that she was sick about 3 weeks ago with cough, congestion. She reports her symptoms resolved Three days ago on her symptoms returned with cough, congestion. Today she developed a headache She also reported as though she ?felt like my throat was closing and I could not breathe. ? She has no known allergies. 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 No other complaints or concerns at this time Related Data Home Medications ?Medication ?Instructions ?Recorded ?Confirmed fluocinonide 0.05 % topical 1 appl topical BID PRN 02/23/21 06/23/24 solution ixekizumab 80 mg/mL subcutaneous 80 mg subcut Q4W 04/12/22 06/23/24 auto-injector (IPDIA Autoinjector (2 Pack)) calcipotriene 0.005 % topical cream 1 appl topical QAM 01/05/24 06/23/24 Previous Rx's ?Medication ?Instructions ?Recorded lorazepam 0.5 mg tablet 0.5 mg PO DAILY PRN anxiety #20 07/28/22 tabs mupirocin 2 % topical ointment 1 appl topical BID 7 days #15 grams 12/09/23 valacyclovir 500 mg tablet 500 mg PO Q12H 10 days #20 tabs 01/05/24 sodium,potassium,mag sulfates 17.5 480 ml PO .COMPLEX #354 mL 02/07/24 gram-3.13 gram-1.6 gram oral soln (Suprep Bowel Prep Kit) sodium,potassium,mag sulfates 17.5 See Rx Instructions PO .COMPLEX 04/25/24 gram-3.13 gram-1.6 gram oral soln #354 mL (Suprep Bowel Prep Kit) amlodipine 5 mg tablet 5 mg PO DAILY #90 tabs 06/23/24 atorvastatin 20 mg tablet 20 mg PO BEDTIME #90 tabs 06/23/24 buspirone 10 mg tablet 20 mg (2 x 10 mg) PO BID #360 tabs 06/23/24 albuterol sulfate 90 mcg/actuation 2 puff inhalation Q4H PRN 07/20/24 aerosol inhaler (Ventolin HFA) shortness of breath or wheezing #8.5 grams azithromycin 250 mg tablet 250 mg PO DAILY 4 days #4 tabs 07/20/24 prednisone 20 mg tablet 40 mg (2 x 20 mg) PO DAILY #8 tabs 07/20/24 Allergies Allergy/AdvReac Type Severity Reaction Status Date / Time No Known Allergies Allergy Verified 07/19/24 21:53 Review of Systems 2 Constitutional: Constitutional: Denies body ache(s), Denies chills, Denies fever(s) and Reports headache(s) Eyes: Eyes: Denies blurry vision ENT: Denies vertigo, Denies dizziness, Reports headache(s) and Reports sore throat Cardiovascular: Cardiovascular: Denies chest pain and Reports dyspnea Respiratory: Respiratory: Reports cough and Reports dyspnea Gastrointestinal: Gastrointestinal: Denies abdominal pain, Denies nausea and Denies vomiting Musculoskeletal: Musculoskeletal: Denies back pain Integumentary/Breasts: Skin/Breast: Denies rash Neurologic: Denies vertigo, Denies dizziness and Reports headache(s) Psychiatric: Psychiatric: Denies anxiety PMFSH Past Medical History Medical History (Updated 07/20/24 @ 00:06 by David Rawls) Annual physical exam Strep pharyngitis Hematuria Right flank pain Hx of renal calculi Kidney stone Otitis media, right Encounter for IUD removal Well woman exam HTN (hypertension) Menopausal disorder Palpitations Anxiety Surgical History History of section History of tubal ligation Family History Family History Father CVD (cardiovascular disease) History of heart attack Mother HTN (hypertension) Maternal Grandmother Aneurysm Maternal Grandfather Myocardial infarction Maternal Grandmother Aneurysm Paternal Grandfather Myocardial infarction CVD (cardiovascular disease) Paternal Grandmother Aneurysm Paternal Uncle CVD (cardiovascular disease) Myocardial infarction Brother No problems noted. Daughter No problems noted. Social History Social History (Reviewed 06/23/24 @ 10:26 by SAMEER Anthony [facility] Alcohol intake: current Alcohol intake frequency: a few times a month Patient Tobacco Use Status: Current everyday Tobacco user Cigarettes Per Day: 3 Years Smoked: 20 years e-Cigarette/Vaping Use: Never Used Advance Directives: No Advance Directives Information Provided: No Current occupational status: employed Cognitive needs: No Hearing needs: No Vision needs: Yes Physical Exam ED Vital Signs: Vital Signs - 24 hr 07/19/24 21:48 Temperature 97.0 F Pulse Rate 64 Respiratory Rate 16 Blood Pressure 160/87 H Pulse Oximetry 98 Oxygen Delivery Method Room Air BMI result Body Mass Index 30.0 Const General: healthy appearing, comfortable, no acute distress, alert and awake Nutritional Appearance: well nourished Orientation/consciousness: patient oriented x3 HENMT Head: Yes normocephalic and Yes atraumatic Throat: Yes posterior oropharynx normal Eyes Eyelids: Yes eyelids normal Conjunctivae: conjunctivae normal Sclerae: sclerae normal Corneas: corneas normal Pupils: Equal, round and reactive pupils present EOM: EOMs intact bilaterally Neck Neck: Yes full ROM Resp Effort & Inspection: normal respiratory effort, able to speak in complete sentences, no audible wheezes and not labored Auscultation: clear to auscultation bilaterally Cardio Rate: regular rate Rhythm: regular rhythm Skin General skin exam: elasticity normal Neuro General: patient oriented x3 Cranial nerves: Yes Equal, round and reactive pupils present and Yes Bilaterally intact EOM present Cognition (Neuro): normal cognition Extrem Other: Moving all extremities well without any obvious deformities Medical Decision Making Medical Decision Making MDM Narrative: 53-year-old female with past medical history as documented above presents for evaluation of cough and congestion with shortness of breath. She feels as though her throat is closing but has no oral, perioral or retropharyngeal edema. No stridor in the lungs or trachea. No Gallo's angina. There was no objective findings of anaphylaxis or airway compromise. The patient's symptoms are most consistent with an upper respiratory infection with cough, congestion headache and sore throat. Chest x-ray is clear, she was not have pneumonia, viral swabs are negative. We will discharge the patient has azithromycin, prednisone and an albuterol inhaler. Differential Diagnosis Differential Diagnoses: The differential diagnosis associated with the presentation includes Upper respiratory infection Viral syndrome Pneumonia Bronchitis Pharyngitis Strep pharyngitis Lab Data [facility] Lab Attestation statement: I reviewed the patient's lab results. No leukocytosis or significant anemia. Normal platelet count. No electrolyte abnormalities 07/19/24 21:38 07/19/24 21:38 Labs: Lab Results 07/19/24 Range/Units 21:38 WBC 8.0 (4.8-10.8) X10*3/uL RBC 3.74 L (4.20-5.50) X10*6/uL Hgb 13.1 (12.0-16.0) g/dl Hct 36.5 L (37.0-47.0) % MCV 97.6 (80.0-98.0) fL MCH 35.0 H (27.0-33.0) pg MCHC 35.9 H (31.0-35.0) g/dl RDW 13.7 (11.0-16.0) % Plt Count 224 (160-400) X10*3/uL MPV 9.6 (9.4-12.3) fL Immature Gran % (Auto) 0.3 (0.0-0.4) % Neut % (Auto) 65.5 (45-73) % Lymph % (Auto) 22.3 (20-40) % [place] % (Auto) 9.1 (2-11) % Eos % (Auto) 1.9 (0-4) % Baso % (Auto) 0.9 (0-2) % Lymph # (Auto) 1.8 (1.2-4.9) X10*3/uL [place] # (Auto) 0.7 (0.1-1.2) X10*3/uL Eos # (Auto) 0.2 (0.0-0.4) X10*3/uL Baso # (Auto) 0.1 (0.0-0.2) X10*3/uL Abs Immat Gran (auto) 0.02 (0.00-0.03) X10*3/uL Absolute Neuts (auto) 5.2 (2.0-8.3) x10*3/uL Absolute Nucleated RBC 0.000 (0.0-0.012) X10*3/uL Nucleated RBC % (auto) 0.0 (0.0-0.2) /100WBC Sodium 141 (135-145) mmol/L Potassium 3.5 (3.3-5.1) mmol/L Chloride 110 H (96-108) mmol/L Carbon Dioxide 22 (22-29) mmol/L Anion Gap 13 (12-20) BUN 14 (9-16) mg/dL Creatinine 0.73 (0.5-1.4) mg/dL Estim Creat Clear Calc 91.7 Estimated GFR > 60 Random Glucose 91 (60-115) mg/dL Calcium 8.9 (8.4-10.2) mg/dL Total Bilirubin 0.5 (0.0-1.0) mg/dL AST 45 H (5-31) U/L ALT 26 (0-31) U/L Alkaline Phosphatase 122 H (39-117) U/L Total Protein 6.7 (6.5-8.0) g/dL Albumin 3.7 (3.5-5.0) g/dL Influenza Type A (PCR) NEGATIVE (Negative) Influenza Type B (PCR) NEGATIVE (Negative) RSV RNA Qual (PCR) NEGATIVE (Negative) SARS-CoV-2 RNA (RT-PCR) NEGATIVE (Negative) Independent Interpretation I performed an independent interpretation of an: Plain X-Ray (No focal infiltrates) Radiology Impression Discussion of test interpretation with radiology: I have reviewed the radiologist's reading. Radiologist Impression: Findings: No consolidation or effusion. Normal size heart. No acute fracture. IMPRESSION: 1. No acute findings. This document has been electronically signed by: Kg Boudreaux MD on 07/19/2024 23:46:39 Tests considered The following testing was considered but not selected: considered strep testing, but the patient has no evidence of abscess, no obvious retropharyngeal erythema or exudates. Azithromycin with cover strep pharyngitis any ways. This was Discharge Plan Discharge Clinical Impression: Acute upper respiratory infection Patient Disposition: Home, Self-Care Instructions: Upper Respiratory Infection (ED) Additional Instructions: Your labs were unremarkable. Your chest x-ray was clear, you do not have pneumonia. You did not have influenza, COVID-19, or RSV. However your symptoms may be related to an upper respiratory infection. Take azithromycin as prescribed, prednisone Use the albuterol inhaler as needed Prescriptions: New azithromycin 250 mg tablet 250 mg PO DAILY 4 Days Qty: 4 0RF Rx Instructions: start on day 2 of therapy prednisone 20 mg tablet 40 mg PO DAILY Qty: 8 0RF albuterol sulfate [Ventolin HFA] 90 mcg/actuation HFA aerosol inhaler 2 puff inhalation Q4H PRN (Reason: shortness of breath or wheezing) Qty: 8.5 0RF No Action valacyclovir 500 mg tablet 500 mg PO Q12H 10 Days Qty: 20 0RF sodium,potassium,mag sulfates [Suprep Bowel Prep Kit] 17.5-3.13-1.6 gram recon soln See Rx Instructions PO .COMPLEX Qty: 354 0RF Rx Instructions: DILUTE each bottle with 16oz of water; drink first bottle 5pm evening before procedure AND second bottle at 11pm; follow each bottle with at least 32 oz.of water within 1 hour after each bottle mupirocin 2 % ointment 1 appl topical BID 7 Days Qty: 15 0RF Taltz Autoinjector (2 Pack) 80 mg/mL auto-injector 80 mg subcut Q4W calcipotriene 0.005 % cream 1 appl topical QAM lorazepam 0.5 mg tablet 0.5 mg PO DAILY PRN (Reason: anxiety) Qty: 20 0RF fluocinonide 0.05 % solution 1 appl topical BID PRN sodium,potassium,mag sulfates [Suprep Bowel Prep Kit] 17.5-3.13-1.6 gram recon soln 480 ml PO .COMPLEX Qty: 354 0RF Rx Instructions: 480 mL orally; FOR COLONOSCOPY PREP amlodipine 5 mg tablet 5 mg PO DAILY Qty: 90 3RF atorvastatin 20 mg tablet 20 mg PO BEDTIME Qty: 90 3RF buspirone 10 mg tablet 20 mg PO BID Qty: 360 3RF Stand Alone Forms: Work/School Release Print Language: Japanese
[2024-07-20 00:23] VITALS: BP 164/90; PULSE 66; RESP 16; TEMP 36.8; O2SAT 96
[2024-07-20] MEDS: Azithromycin 500 MG TABLET PO (00:23)
[2024-07-20] MEDS: predniSONE 20 MG TABLET 40 MG PO (00:23)
[2024-07-20 00:26] VITALS: BP 164/90; PULSE 66; RESP 16; TEMP 36.8; O2SAT 96
== END 2024-07-20 00:27 | disposition home or self-care (01) ==
PROVIDERS: Emergency Provider Emergency Medicine; PCP Internal Medicine
DX: J06.9 Acute upper respiratory infection, unspecified (principal); R06.02 Shortness of breath; R51.9 Headache, unspecified; F17.210 Nicotine dependence, cigarettes, uncomplicated; Z03.818 Encounter for observation for suspected exposure to other biological agents ruled out
CPT/HCPCS: 0241U; 36415; 71045; 80053; 85025; 99283

== ENCOUNTER → 2024-07-19 22:45 | Outpatient (BNV) | payer OTHER, SELFPAY | PROVIDERS: Emergency Provider Emergency Medicine; PCP Internal Medicine; Visit Provider Radiology Diagnostic Radiology | DX: R05.9 Cough, unspecified (principal) | CPT/HCPCS: 71045 ==

== ENCOUNTER 2024-08-14 10:55 | Emergency (ER) | payer OTHER, SELFPAY ==
--- NOTE | ~2024-08-14 | XR_ITS ---
EXAMINATION: XR CHEST CLINICAL INFORMATION: pain COMPARISON: July 19, 2024. TECHNIQUE: 2 views of the chest were obtained. FINDINGS: No consolidation, pleural effusion or pneumothorax. No hyperinflation. No volume loss. Cardiomediastinal silhouette size is normal. Osseous structures are intact. XR/XR chest 2V IMPRESSION: No acute airspace disease. Stable chest. Electronically signed by: Ryan Donnelly MD 08/14/2024 12:42 PM EDT
--- NOTE | ~2024-08-14 | CT_ITS ---
EXAMINATION: CT ABDOMEN PELVIS WITHOUT IV CONTRAST HISTORY: left flank pain COMPARISON: Comparison is made with the prior examination dated 06/25/2020. TECHNIQUE: CT scan of the abdomen and pelvis was performed without contrast using standard departmental protocol. Coronal and sagittal reformatted images were generated and reviewed. Oral contrast material was not administered per department protocol. This CT exam was performed with one or more of the following dose reduction techniques: automated exposure control, adjustment of the mA and/or kV according to patient size, use of iterative reconstruction technique. DLP: 503 mGy-cm FINDINGS: LOWER CHEST: There is dependent atelectasis at both lung bases. There is no pleural effusion. CARDIOVASCULATURE: The heart is normal in size. There is no pericardial effusion. LIVER: The liver is normal in size and contour. The liver has an unremarkable unenhanced appearance. GALLBLADDER / BILE DUCTS: The gallbladder is unremarkable. There is no intra or extrahepatic biliary ductal dilatation. SPLEEN: The spleen is normal in size and has an unremarkable unenhanced appearance. PANCREAS: The pancreas has an unremarkable unenhanced appearance. ADRENAL GLANDS: Unremarkable. KIDNEYS/RETROPERITONEUM: There are punctate nonobstructing calculi at the lower pole of the left kidney. No right renal calculi are identified. There is no hydronephrosis or hydroureter. LYMPH NODES: No retroperitoneal lymphadenopathy is identified in the abdomen or pelvis. VASCULATURE: The abdominal aorta is normal in caliber. MESENTERY/PERITONEUM: No free fluid. No masses. There is no free intraperitoneal gas. STOMACH: There is a small hiatal hernia. The remainder of the stomach is collapsed. SMALL BOWEL: The small bowel is normal in caliber. COLON: There is a moderate to large amount of stool throughout the colon. APPENDIX: Normal. URINARY BLADDER/PELVIC ORGANS: The urinary bladder is unremarkable. The patient is status post tubal ligation. BONES / SOFT TISSUES: No suspicious bony or soft tissue abnormalities. CT/CT abdomen pelvis wo IV con IMPRESSION: 1. Punctate nonobstructing calculi at the lower pole of the left kidney. No evidence of ureteral obstruction. 2. Moderate to large amount of stool throughout the colon. Electronically signed by: Hubert Santa MD 08/14/2024 02:40 PM EDT RP
[2024-08-14 11:10] VITALS: BP 150/93; BP 160/87; PULSE 65; RESP 18; TEMP 36.4; O2SAT 99; BMI 26.6
--- NOTE | 2024-08-14 11:51 | ECG_ITS ---
Test Reason : PAIN Blood Pressure : */* mmHG Vent. Rate : 55 BPM Atrial Rate : 55 BPM P-R Int : 216 ms QRS Dur : 80 ms QT Int : 418 ms P-R-T Axes : 42 30 62 degrees QTcB Int : 399 ms Sinus bradycardia with 1st degree A-V block Cannot rule out Anterior infarct , age undetermined Abnormal ECG When compared with ECG of 17-Jun-2021 15:47, No significant change was found Referred By: David Rawls Electronically Signed By: TISH LUCERO MD
[2024-08-14] MEDS: ondansetron HCL 4 MG/2 ML VIAL IVPUSH (12:04)
[2024-08-14] MEDS: 0.9 % Sodium Chloride 1,000 ML 999 ML IV (12:05)
[2024-08-14] MEDS: Ketorolac Tromethamine 30 MG/ML VIAL IVPUSH (12:07)
[2024-08-14 12:10] LABS: MANUAL DIFF FLAG NO
[2024-08-14 12:14] LABS: Basophils Absolute Auto 0.1 X10*3/uL (0.0-0.2); Basophils Percent Auto 1.1 % (0-2); Eosinophils Absolute Auto 0.2 X10*3/uL (0.0-0.4); Eosinophils Percent Auto 2.9 % (0-4); Hematocrit 39.1 % (37.0-47.0); Hemoglobin 13.8 g/dl (12.0-16.0); Imm Gran Abs Auto 0.03 X10*3/uL (0.00-0.03); Imm Gran Pct Auto 0.4 % (0.0-0.4); Lymphocytes Absolute Auto 1.6 X10*3/uL (1.2-4.9); Lymphocytes Percent Auto 19.2 % (20-40); Mean Corpuscular HGB Conc 35.3 g/dl (31.0-35.0); Mean Corpuscular Hemoglobin 34.4 pg (27.0-33.0); Mean Corpuscular Volume 97.5 fL (80.0-98.0); Mean Platelet Volume 9.6 fL (9.4-12.3); Monocytes Absolute Auto 0.6 X10*3/uL (0.1-1.2); Monocytes Percent Auto 7.3 % (2-11); Neutrophils Absolute Auto 5.7 x10*3/uL (2.0-8.3); Neutrophils Percent Auto 69.1 % (45-73); Platelet Count 249 X10*3/uL (160-400); Red Blood Count 4.01 X10*6/uL (4.20-5.50); Red Cell Distribution Width 13.2 % (11.0-16.0); White Blood Count 8.2 X10*3/uL (4.8-10.8)
--- NOTE | 2024-08-14 12:17 | ED.GENADULT ---
HPI - General Adult General Chief complaint: Back Pain/Injury Stated complaint: Back Pain radiates to LLQ per ems Time Seen by Provider: 08/14/24 11:35 Source: patient, RN notes reviewed and old records reviewed Mode of arrival: EMS Limitations: no limitations History of Present Illness ED Provider: [facility] HPI narrative: 53-year-old female with past medical history significant for hypertension, hyperlipidemia, anxiety presents for evaluation of left flank pain. Patient reports that she works as a wellness program coordinator. Last night while at work she started to have pain her left flank that was worse when she bent over or tried to pick anything up. She denies any specific injury or falls. The pain is in her left mid to upper back and radiates around to the left side. She reports that she feels ?like there are contractions in the back. ? She denies any abdominal pain, nausea, vomiting. Her pain is worse with coughing. She denies any urinary symptoms. She took some ibuprofen yesterday with minimal improvement Related Data Home Medications ?Medication ?Instructions ?Recorded ?Confirmed fluocinonide 0.05 % topical 1 appl topical BID PRN 02/23/21 06/23/24 solution ixekizumab 80 mg/mL subcutaneous 80 mg subcut Q4W 04/12/22 06/23/24 auto-injector ([employer]Rete Autoinjector (2 Pack)) calcipotriene 0.005 % topical cream 1 appl topical QAM 01/05/24 06/23/24 Previous Rx's ?Medication ?Instructions ?Recorded lorazepam 0.5 mg tablet 0.5 mg PO DAILY PRN anxiety #20 07/28/22 tabs mupirocin 2 % topical ointment 1 appl topical BID 7 days #15 grams 12/09/23 valacyclovir 500 mg tablet 500 mg PO Q12H 10 days #20 tabs 01/05/24 sodium,potassium,mag sulfates 17.5 480 ml PO .COMPLEX #354 mL 02/07/24 gram-3.13 gram-1.6 gram oral soln (Suprep Bowel Prep Kit) sodium,potassium,mag sulfates 17.5 See Rx Instructions PO .COMPLEX 04/25/24 gram-3.13 gram-1.6 gram oral soln #354 mL (Suprep Bowel Prep Kit) amlodipine 5 mg tablet 5 mg PO DAILY #90 tabs 06/23/24 atorvastatin 20 mg tablet 20 mg PO BEDTIME #90 tabs 06/23/24 buspirone 10 mg tablet 20 mg (2 x 10 mg) PO BID #360 tabs 06/23/24 albuterol sulfate 90 mcg/actuation 2 puff inhalation Q4H PRN 07/20/24 aerosol inhaler (Ventolin HFA) shortness of breath or wheezing #8.5 grams azithromycin 250 mg tablet 250 mg PO DAILY 4 days #4 tabs 07/20/24 prednisone 20 mg tablet 40 mg (2 x 20 mg) PO DAILY #8 tabs 07/20/24 cyclobenzaprine 10 mg tablet 10 mg PO TID PRN muscle spasm #20 08/14/24 tabs tramadol 50 mg tablet 50 mg PO Q6H PRN pain #12 tabs 08/14/24 Allergies Allergy/AdvReac Type Severity Reaction Status Date / Time No Known Allergies Allergy Verified 08/14/24 11:12 Review of Systems Constitutional: Constitutional: Denies body ache(s), Denies chills and Denies fever(s) Cardiovascular: Cardiovascular: Denies chest pain and Denies dyspnea Respiratory: Respiratory: Reports cough and Denies dyspnea Gastrointestinal: Gastrointestinal: Denies abdominal pain, Reports nausea and Denies vomiting Genitourinary: Genitourinary: Denies dysuria and Denies pelvic pain Musculoskeletal: Musculoskeletal: Reports back pain Integumentary/Breasts: Skin/Breast: Denies rash Psychiatric: Psychiatric: Denies anxiety [facility] Past Medical History Medical History (Updated 08/14/24 @ 12:55 by David Rawls) Annual physical exam Strep pharyngitis Hematuria Right flank pain Hx of renal calculi Kidney stone Otitis media, right Encounter for IUD removal Well woman exam HTN (hypertension) Menopausal disorder Palpitations Anxiety Surgical History History of section History of tubal ligation Family History Family History Father CVD (cardiovascular disease) History of heart attack Mother HTN (hypertension) Maternal Grandmother Aneurysm Maternal Grandfather Myocardial infarction Maternal Grandmother Aneurysm Paternal Grandfather Myocardial infarction CVD (cardiovascular disease) Paternal Grandmother Aneurysm Paternal Uncle CVD (cardiovascular disease) Myocardial infarction Brother No problems noted. Daughter No problems noted. Social History Social History Housing: Condominium Alcohol intake: current Alcohol intake frequency: a few times a month Patient Tobacco Use Status: Current everyday Tobacco user Cigarettes Per Day: 3 Years Smoked: 20 years Smoked in Last 30 Days: Yes e-Cigarette/Vaping Use: Never Used Use of substances other than those prescribed or required for medical reasons: No Advance Directives: No Advance Directives Information Provided: Yes Do you have a plan to hurt others: No Plan Patient : No Current occupational status: employed Cognitive needs: No Hearing needs: No Vision needs: Yes Physical Exam ED Vital Signs: Vital Signs - 24 hr 08/14/24 11:10 08/14/24 13:45 08/14/24 13:46 Temperature 97.5 F 97.6 F Pulse Rate 65 74 Respiratory Rate 18 18 18 Blood Pressure 150/93 H 145/70 H Pulse Oximetry 99 97 Oxygen Delivery Method Room Air Room Air 08/14/24 15:45 Temperature 98.2 F Pulse Rate 70 Respiratory Rate 16 Blood Pressure 147/96 H Pulse Oximetry 97 Oxygen Delivery Method Room Air BMI result Body Mass Index 26.6 Const General: healthy appearing, comfortable, no acute distress, alert and awake Nutritional Appearance: well nourished Orientation/consciousness: patient oriented x3 HENMT Head: Yes normocephalic and Yes atraumatic Eyes Eyelids: Yes eyelids normal Conjunctivae: conjunctivae normal Sclerae: sclerae normal Corneas: corneas normal Pupils: Equal, round and reactive pupils present EOM: EOMs intact bilaterally Neck Neck: Yes full ROM Resp Effort & Inspection: normal respiratory effort, able to speak in complete sentences, no audible wheezes and not labored Auscultation: clear to auscultation bilaterally Cardio Rate: regular rate Rhythm: regular rhythm GI Inspection: No distended Palpation (GI): Soft to palpation, not firm, nontender, no guarding and not rigid Back/Spine/Pelvis Other: The patient has exquisite tenderness to the left thoracic paraspinous muscles and left flank. No visual or palpable deformities. Skin General skin exam: elasticity normal Neuro General: patient oriented x3 Cranial nerves: Yes Equal, round and reactive pupils present and Yes Bilaterally intact EOM present Cognition (Neuro): normal cognition Extrem Other: Moving all extremities well without any obvious deformities Medications Administered Discontinued Medications Generic Name Dose Route Start Last Admin Trade Name Avinash PRN Reason Stop Dose Admin Sodium Chloride 1,000 mls @ 999 mls/hr 08/14/24 12:00 08/14/24 14:03 Ns IV 08/14/24 13:00 Infused .Q1H1M ILYA Infusion Ketorolac Tromethamine 30 mg 08/14/24 11:51 08/14/24 12:07 Ketorolac Tromethamine 30 Mg/Ml Vial IVPUSH 08/14/24 11:52 30 mg ONCE ONE Administration Morphine Sulfate 4 mg 08/14/24 13:23 08/14/24 13:45 Morphine Sulfate 4 Mg/Ml Cartridge IVPUSH 08/14/24 13:24 4 mg ONCE ONE Administration Protocol Ondansetron HCl 4 mg 08/14/24 11:51 08/14/24 12:04 Ondansetron Hcl 4 Mg/2 Ml Vial IVPUSH 08/14/24 11:52 4 mg ONCE ONE Administration Medical Decision Making Medical Decision Making [facility] Narrative: 53-year-old female presents for evaluation of left flank pain. She has exquisite tenderness on exam, her pain is worse with movement. This is most consistent with musculoskeletal origin of her symptoms. She also has a cough and a history of kidney stones. Given this we will get a chest x-ray to rule out pneumonia. We will also get a CT scan of the abdomen pelvis to evaluate for obstructive uropathy but I feel this is less likely. Plan for labs, urinalysis. We will treat her pain with Toradol. Her vital signs are stable. No signs of infectious process currently Differential Diagnosis Differential Diagnoses: The differential diagnosis associated with the presentation includes Muscle strain Costochondritis Pneumonia Obstructive uropathy Lab Data [facility] Lab Attestation statement: I reviewed the patient's lab results. No leukocytosis or anemia. Normal platelet count. No electrolyte abnormalities warranting intervention. Renal function within normal limits 08/14/24 12:06 08/14/24 12:06 Labs: Lab Results 08/14/24 08/14/24 Range/Units 12:06 14:51 WBC 8.2 (4.8-10.8) X10*3/uL RBC 4.01 L (4.20-5.50) X10*6/uL Hgb 13.8 (12.0-16.0) g/dl Hct 39.1 (37.0-47.0) % MCV 97.5 (80.0-98.0) fL MCH 34.4 H (27.0-33.0) pg MCHC 35.3 H (31.0-35.0) g/dl RDW 13.2 (11.0-16.0) % Plt Count 249 (160-400) X10*3/uL MPV 9.6 (9.4-12.3) fL Immature Gran % (Auto) 0.4 (0.0-0.4) % Neut % (Auto) 69.1 (45-73) % Lymph % (Auto) 19.2 L (20-40) % [place] % (Auto) 7.3 (2-11) % Eos % (Auto) 2.9 (0-4) % Baso % (Auto) 1.1 (0-2) % Lymph # (Auto) 1.6 (1.2-4.9) X10*3/uL [place] # (Auto) 0.6 (0.1-1.2) X10*3/uL Eos # (Auto) 0.2 (0.0-0.4) X10*3/uL Baso # (Auto) 0.1 (0.0-0.2) X10*3/uL Abs Immat Gran (auto) 0.03 (0.00-0.03) X10*3/uL Absolute Neuts (auto) 5.7 (2.0-8.3) x10*3/uL Absolute Nucleated RBC 0.000 (0.0-0.012) X10*3/uL Nucleated RBC % (auto) 0.0 (0.0-0.2) /100WBC Sodium 143 (135-145) mmol/L Potassium 4.1 (3.3-5.1) mmol/L Chloride 112 H (96-108) mmol/L Carbon Dioxide 24 (22-29) mmol/L Anion Gap 11 L (12-20) BUN 16 (9-16) mg/dL Creatinine 0.69 (0.5-1.4) mg/dL Estim Creat Clear Calc 91.7 Estimated GFR > 60 Random Glucose 93 (60-115) mg/dL Calcium 9.4 (8.4-10.2) mg/dL Total Bilirubin 0.5 (0.0-1.0) mg/dL AST 35 H (5-31) U/L ALT 26 (0-31) U/L Alkaline Phosphatase 115 (39-117) U/L Total Protein 6.9 (6.5-8.0) g/dL Albumin 4.1 (3.5-5.0) g/dL Urine Color Yellow Urine Appearance Clear Urine pH 6.0 (5.0-9.0) Ur Specific [place] 1.010 (1.005-1.025) Urine Protein Negative (Neg-Trace) mg/dL Urine Glucose (UA) Negative (Negative) mg/dL Urine Ketones Negative (Negative) mg/dL Urine Blood Negative (Negative) Urine Nitrite Negative (Negative) Ur Leukocyte Esterase Negative (Negative) Urine RBC 0-2 (0-2) /HPF Urine WBC 0-5 (0-5) /HPF Ur Squamous Epith Cells 0-2 (0-2) /HPF Urine Bacteria None Seen (None Seen) Hyaline Casts 0-2 (0-2) /LPF Influenza Type A (PCR) NEGATIVE (Negative) Influenza Type B (PCR) NEGATIVE (Negative) RSV RNA Qual (PCR) NEGATIVE (Negative) SARS-CoV-2 RNA (RT-PCR) NEGATIVE (Negative) Independent Interpretation I performed an independent interpretation of an: Plain X-Ray Radiology Impression Discussion of test interpretation with radiology: I have reviewed the radiologist's reading. Radiologist Impression: CT/CT abdomen pelvis wo IV con IMPRESSION: 1. Punctate nonobstructing calculi at the lower pole of the left kidney. No evidence of ureteral obstruction. 2. Moderate to large amount of stool throughout the colon. FINDINGS: No consolidation, pleural effusion or pneumothorax. No hyperinflation. No volume loss. Cardiomediastinal silhouette size is normal. Osseous structures are intact. XR/XR chest 2V IMPRESSION: No acute airspace disease. Stable chest. Electronically signed by: Ryan Donnlely MD 08/14/2024 12:42 PM EDT RP Discharge Plan Discharge Clinical Impression: Acute left flank pain Patient Disposition: Home, Self-Care Instructions: Muscle Strain (ED) Additional Instructions: Your workup in the ER today was reassuring. Your CT scan did not show any obstructive kidney stones. You are constipated Your chest x-ray was clear, your blood work was reassuring in your urinalysis was clear You may use tramadol as needed for severe breakthrough pain. This may make you drowsy, do not drink alcohol or drive after taking it. I recommend that you take MiraLax every day for the next 2 weeks to help with the constipation, this medication may increase constipation You may use cyclobenzaprine as needed for muscle spasms Prescriptions: New tramadol 50 mg tablet 50 mg PO Q6H PRN (Reason: pain) Qty: 12 0RF cyclobenzaprine 10 mg tablet 10 mg PO TID PRN (Reason: muscle spasm) Qty: 20 0RF No Action valacyclovir 500 mg tablet 500 mg PO Q12H 10 Days Qty: 20 0RF sodium,potassium,mag sulfates [Suprep Bowel Prep Kit] 17.5-3.13-1.6 gram recon soln See Rx Instructions PO .COMPLEX Qty: 354 0RF Rx Instructions: DILUTE each bottle with 16oz of water; drink first bottle 5pm evening before procedure AND second bottle at 11pm; follow each bottle with at least 32 oz.of water within 1 hour after each bottle mupirocin 2 % ointment 1 appl topical BID 7 Days Qty: 15 0RF azithromycin 250 mg tablet 250 mg PO DAILY 4 Days Qty: 4 0RF Rx Instructions: start on day 2 of therapy prednisone 20 mg tablet 40 mg PO DAILY Qty: 8 0RF albuterol sulfate [Ventolin HFA] 90 mcg/actuation HFA aerosol inhaler 2 puff inhalation Q4H PRN (Reason: shortness of breath or wheezing) Qty: 8.5 0RF Taltz Autoinjector (2 Pack) 80 mg/mL auto-injector 80 mg subcut Q4W calcipotriene 0.005 % cream 1 appl topical QAM lorazepam 0.5 mg tablet 0.5 mg PO DAILY PRN (Reason: anxiety) Qty: 20 0RF fluocinonide 0.05 % solution 1 appl topical BID PRN sodium,potassium,mag sulfates [Suprep Bowel Prep Kit] 17.5-3.13-1.6 gram recon soln 480 ml PO .COMPLEX Qty: 354 0RF Rx Instructions: 480 mL orally; FOR COLONOSCOPY PREP amlodipine 5 mg tablet 5 mg PO DAILY Qty: 90 3RF atorvastatin 20 mg tablet 20 mg PO BEDTIME Qty: 90 3RF buspirone 10 mg tablet 20 mg PO BID Qty: 360 3RF Stand Alone Forms: Work/School Release Print Language: Icelandic
[2024-08-14 12:29] LABS: Alanine Aminotransferase 26 U/L (0-31); Albumin Level 4.1 g/dL (3.5-5.0); Alkaline Phosphatase 115 U/L (39-117); Anion Gap 11 (12-20); Aspartate Amino Transferase 35 U/L (5-31); Bilirubin Total 0.5 mg/dL (0.0-1.0); Blood Urea Nitrogen 16 mg/dL (9-16); Calcium 9.4 mg/dL (8.4-10.2); Carbon Dioxide 24 mmol/L (22-29); Chloride 112 mmol/L (96-108); Creatinine Clr Calc Pharmacy 91.7; Estimated Glomerular Filt Rate > 60; Glucose Random 93 mg/dL (60-115); Potassium 4.1 mmol/L (3.3-5.1); Sodium 143 mmol/L (135-145); Total Protein 6.9 g/dL (6.5-8.0)
[2024-08-14 12:49] LABS: Influenza A PCR NEGATIVE (Negative); Influenza B PCR NEGATIVE (Negative); Resp Syncy Virus RNA Qual PCR NEGATIVE (Negative); SARS COV2 PCR INHOUSE NEGATIVE (Negative)
[2024-08-14 13:45] VITALS: RESP 18
[2024-08-14] MEDS: Morphine Sulfate 4 MG/ML CARTRIDGE IVPUSH (13:45)
[2024-08-14 13:46] VITALS: BP 145/70; PULSE 74; RESP 18; TEMP 36.4; O2SAT 97
[2024-08-14 14:58] LABS: Appearance Urine Clear; Color Urine Yellow; Glucose Urine UA Negative (Negative); Leukocyte Esterase Urine Negative (Negative); Nitrite Urine Negative (Negative); Urine Blood Negative (Negative); Urine Ketones Negative (Negative); Urine Protein Negative (Neg-Trace)
[2024-08-14 15:00] LABS: Bacteria Urine None Seen (None Seen); Hyaline Casts Urine 0-2 /LPF (0-2); RBC Urine 0-2 /HPF (0-2); Squamous Epithelial Cell Urine 0-2 /HPF (0-2); WBC Urine 0-5 /HPF (0-5)
[2024-08-14 15:45] VITALS: BP 147/96; PULSE 70; RESP 16; TEMP 36.8; O2SAT 97
[2024-08-14 17:00] VITALS: BP 147/96; PULSE 70; RESP 16; TEMP 36.8; O2SAT 97
== END 2024-08-14 17:00 | disposition home or self-care (01) ==
PROVIDERS: Physician Assistant; Emergency Provider Emergency Medicine; PCP Internal Medicine
DX: R10.9 Unspecified abdominal pain (principal); R05.9 Cough, unspecified; Z03.818 Encounter for observation for suspected exposure to other biological agents ruled out; Z79.02 Long term (current) use of antithrombotics/antiplatelets; Z79.899 Other long term (current) drug therapy
CPT/HCPCS: 0241U; 36415; 71046; 74176; 80053; 81001; 85025; 93005; 96361; 96374; 96375; 99284; 99285; J1885; J2270; J2405

== ENCOUNTER → 2024-08-14 11:51 | Outpatient (BNV) | payer OTHER, SELFPAY | PROVIDERS: PCP Internal Medicine; Visit Provider Radiology Diagnostic Radiology | DX: N20.0 Calculus of kidney (principal); K59.00 Constipation, unspecified; R07.9 Chest pain, unspecified | CPT/HCPCS: 71046; 74176 ==

== ENCOUNTER → 2024-08-14 11:51 | Outpatient (BNV) | payer OTHER, SELFPAY | PROVIDERS: Emergency Provider Emergency Medicine; PCP Internal Medicine; Visit Provider Internal Medicine Cardiovascular Disease | DX: I44.0 Atrioventricular block, first degree (principal); R00.1 Bradycardia, unspecified | CPT/HCPCS: 93010 ==

== ENCOUNTER 2024-10-06 10:35 | Day surgery (SDC) | payer OTHER, SELFPAY ==
[2024-10-02 16:32] VITALS: BMI 27.1
--- NOTE | 2024-10-03 10:07 | HO.ANESPROP2 ---
Documented by User: Ioana Putnam NP 10/03/24 10:10 HPI - Anesthesia Eval Consult details Narrative: 53yo F for Colonoscopy PMFSH Active Problems Active Problems: All Active Problems Vitamin D overdose (Acute) Elevated LFTs (Acute) Annual physical exam (Acute) Family history of polyps in the colon (Acute) Cold sore (Acute) Periorbital cellulitis of left eye (Acute) Positive colorectal cancer screening using Cologuard test (Acute) Loose stools (Acute) Pre-op examination (Acute) Rectal bleed (Acute) HTN (hypertension) (Acute) Combined hyperlipidemia (Acute) Menopausal disorder (Acute) Palpitations (Acute) Anxiety (Acute) Past Medical History Medical History (Updated 08/15/24 @ 00:00 by Ange Lutz) Annual physical exam Strep pharyngitis Hematuria Right flank pain Hx of renal calculi Kidney stone Otitis media, right Encounter for IUD removal Well woman exam HTN (hypertension) Menopausal disorder Palpitations Anxiety Family History Family History Father CVD (cardiovascular disease) History of heart attack Mother HTN (hypertension) Maternal Grandmother Aneurysm Maternal Grandfather Myocardial infarction Maternal Grandmother Aneurysm Paternal Grandfather Myocardial infarction CVD (cardiovascular disease) Paternal Grandmother Aneurysm Paternal Uncle CVD (cardiovascular disease) Myocardial infarction Brother No problems noted. Daughter No problems noted. Surgical History Surgical History History of section History of tubal ligation Social History Social History Housing: Condominium Are you a primary hourly caregiver to a significant other at home: No Do you presently have visiting nurse or other home services: No Alcohol intake: current Alcohol intake frequency: 3 or more drinks per day Patient Tobacco Use Status: Current everyday Tobacco user Tobacco use type: Cigarette and Smokeless Tobacco Cigarettes Per Day: 4 Years Smoked: 20 years e-Cigarette/Vaping Use: Never Used Frequency of e-Cigarette/Vaping Use: daily Use of substances other than those prescribed or required for medical reasons: No Have you been hit, kicked, punched, or otherwise hurt by someone within the past year? If so, by whom?: No Are you DNR?: No Advance Directives: No Advance Directives Information Provided: Yes Patient : No Poor oral hygiene: No Current occupational status: employed Cognitive needs: No Hearing needs: No Vision needs: Yes Meds Allergies Allergy/AdvReac Type Severity Reaction Status Date / Time No Known Allergies Allergy Verified 10/06/24 10:55 Home Medications ?Medication ?Instructions ?Recorded ?Confirmed ?Last Taken ?Type fluocinonide 0.05 % topical 1 appl topical BID PRN Itching 02/23/21 10/06/24 Unknown History solution ixekizumab 80 mg/mL subcutaneous 80 mg subcut Q4W 04/12/22 10/06/24 Unknown History auto-injector ([employer] Solution[employer] Autoinjector (2 Pack)) calcipotriene 0.005 % topical cream 1 appl topical QAM 01/05/24 10/06/24 Unknown History Exam Height,Weight and Vital Signs: Height 5 ft 4 in Weight 71.668 kg Pertinent Lab Results Pertinent Lab Results: Laboratory Tests 08/14/24 12:06 WBC 8.2 Hgb 13.8 Hct 39.1 Plt Count 249 Sodium 143 Potassium 4.1 Chloride 112 H Carbon Dioxide 24 BUN 16 Creatinine 0.69 Narrative Narrative: EKG 07/2024 Vent. Rate : 55 BPM Atrial Rate : 55 BPM P-R Int : 216 ms QRS Dur : 80 ms QT Int : 418 ms P-R-T Axes : 42 30 62 degrees QTcB Int : 399 ms Sinus bradycardia with 1st degree A-V block Cannot rule out Anterior infarct , age undetermined Abnormal ECG When compared with ECG of 17-Jun-2021 15:47, No significant change was found Assessment and Plan Assessment Anesthesia Assessment: Chart Reviewed Documented by User: Sheree Garza MD 10/06/24 11:48 [facility] Past Medical History Medical History (Updated 08/15/24 @ 00:00 by Ange Lutz) Annual physical exam Strep pharyngitis Hematuria Right flank pain Hx of renal calculi Kidney stone Otitis media, right Encounter for IUD removal Well woman exam HTN (hypertension) Menopausal disorder Palpitations Anxiety Family History Family History Father CVD (cardiovascular disease) History of heart attack Mother HTN (hypertension) Maternal Grandmother Aneurysm Maternal Grandfather Myocardial infarction Maternal Grandmother Aneurysm Paternal Grandfather Myocardial infarction CVD (cardiovascular disease) Paternal Grandmother Aneurysm Paternal Uncle CVD (cardiovascular disease) Myocardial infarction Brother No problems noted. Daughter No problems noted. Family history of problems with anesthesia: No Surgical History Surgical History History of section History of tubal ligation History of Problems with Anesthesia: No Social History Social History Housing: Condominium Are you a primary hourly caregiver to a significant other at home: No Do you presently have visiting nurse or other home services: No Alcohol intake: current Alcohol intake frequency: 3 or more drinks per day Patient Tobacco Use Status: Current everyday Tobacco user Tobacco use type: Cigarette and Smokeless Tobacco Cigarettes Per Day: 4 Years Smoked: 20 years e-Cigarette/Vaping Use: Never Used Frequency of e-Cigarette/Vaping Use: daily Use of substances other than those prescribed or required for medical reasons: No Have you been hit, kicked, punched, or otherwise hurt by someone within the past year? If so, by whom?: No Are you DNR?: No Advance Directives: No Advance Directives Information Provided: Yes Patient : No Poor oral hygiene: No Current occupational status: employed Cognitive needs: No Hearing needs: No Vision needs: Yes Meds Allergies Allergy/AdvReac Type Severity Reaction Status Date / Time No Known Allergies Allergy Verified 10/06/24 10:55 Home Medications ?Medication ?Instructions ?Recorded ?Confirmed ?Last Taken ?Type fluocinonide 0.05 % topical 1 appl topical BID PRN Itching 02/23/21 10/06/24 Unknown History solution ixekizumab 80 mg/mL subcutaneous 80 mg subcut Q4W 04/12/22 10/06/24 Unknown History auto-injector (Taltz Autoinjector (2 Pack)) calcipotriene 0.005 % topical cream 1 appl topical QAM 01/05/24 10/06/24 Unknown History Exam Airway Mallampati Class: II (lateral caps) TM Dist: >3cm Neck ROM: Full Heart: rrr Lungs: cta Assessment and Plan Assessment Anesthesia Assessment: Anesthesia Plan Discussed Final Anesthetic Review Family History of Problems with Anesthesia: No History of Problems with Anesthesia: No NPO: Yes ASA Class: II Final Preanesthetic Review: No Changes in Pt Med Stat, Meds/Allgs Chart Reviewed and Consent Obtained/Reviewed Patient Risk: Low Procedure Risk: Low Anesthetic Plan Anesthetic Plan: MAC: Disposition: Standard PACU
[2024-10-06] MEDS: Lactated Ringers 1,000 ML 100 ML IVCONT (11:11)
[2024-10-06 11:12] VITALS: BP 145/90; PULSE 82; RESP 14; TEMP 36.6; O2SAT 98; BMI 25.7
--- NOTE | 2024-10-06 11:49 | MHC.SHP ---
Pre-Procedural Eval Section A - 24 Hr Update-Section A only Date of Service: 10/06/24 The patient is an INPATIENT: No The patient has been examined within 24 hours of the surgical procedure. The History & Physical has been completed within 30 days and I have reviewed it.: No Section B - Complete if H&P > 30 days Chief Complaint: Positive stool Cologuard test Relevant Family History (Specify if Yes): Yes Relevant Social History: Tobacco Use Present Medications: see Short Stay Collaborative assessment Medical History: Significant History (Hematuria Right flank pain Hx of renal calculi Kidney stone Otitis media, right Encounter for IUD removal Well woman exam HTN (hypertension)) History of Previous Operations: Relevant previous surgery/procedure and date(s) (History of section History of tubal ligation) Allergies: Allergies Allergy/AdvReac Type Severity Reaction Status Date / Time No Known Allergies Allergy Verified 10/06/24 10:55 Review of Systems Sugical H&P ROS: Negative: Constitution, Cardiovascular, Respiratory and Gastrointestinal and Yes, Specify: Psychiatric (anxiety) Exam Surgical H&P Exam: Normal: Heart, Normal: Lungs, Normal: Extremities and Normal: Abdomen Plan Diagnosis/Plan: Unchanged I have reviewed the history and physical and performed a pertinent physical examination on my patient. No changes have occurred unless specified. Time Spent With Patient Time: Total time managing care of this patient today ____ minutes.
--- NOTE | 2024-10-06 14:24 | P.OPN-COLO_ITS ---
Colonoscopy Operative Note Operative Note Date of Service: 10/06/24 Narrative: COLONOSCOPY TILL CECUM WITH SNARE POLYPECTOMY, SUBMUCOSAL INJECTION AND HEMOCLIP PLACEMENT Pre-op diagnosis: Positive Cologuard test, family history of colon polyps. Post-op diagnosis:? Multiple colon polyps, Diverticulosis, hemorrhoids Endoscopist:? Chintan Martinez MD Anesthesia:?MAC Consent: Indications for the procedure and potential complications of bleeding, perforation, reaction to medications and missed diagnosis were discussed with the patient and informed consent was obtained. Instrument: Olympus PCF H 190 L variable stiffness pediatric colonoscope Monitoring: Vital signs and clinical assessment, intermittent blood pressure monitoring, continuous EKG monitoring, Pulse oximetry and Carbon Dioxide monitoring were done throughout the procedure. Please see anesthesia flowsheet. Colon withdrawl time was 50 minutes. Procedure: The patient was placed in the left lateral decubitis position and pre-procedure medications were administered. After a digital rectal examination of the ano-rectum, the video colonoscope was inserted into the rectum and advanced through the colon to the cecum. The colonoscope was slowly withdrawn in a retrograde panoramic fashion and the colon mucosa was carefully examined including a retroflexed view of the rectum. Findings and interventions are described below. Procedure Difficulty: without difficulty Findings: Terminal Ileum: Not evaluated Cecum: Normal Ascending Colon: A 7-8 mm sessile polyp - removed with a hot snare. A 12-15 mm flat polyp - raised with 3 cc of Eleview and removed with a stiff hot snare. A 2.5 to 3 cms elongated flat polyp at 75 cms. Polyp was raised with 5 cc of Eleview and removed piece meal with a hot snare. Polypectomy site was closed with 2 hemoclips and marked with Lindsay ink. Transverse Colon: Normal Descending Colon: Normal Sigmoid Colon: Two 15 to 18 mm sessile polyps at 35 cms - removed with a hot snare and retrieved with a [place] net. One of the polypectomy sites was closed with 2 hemoclips. A 2.5 to 3 cms pedunculated polyp at 15 cms - removed with a stiff hot snare. Polypectomy site was closed with 1 hemoclip and marked with Lindsay ink. Moderate diverticulosis Rectum: Normal Ano-rectum: Moderate internal hemorrhoids Colon preparation: Good after copious irrigation. [place] Bowel Preparation Scale Right colon; 2 Transverse colon: 2 Left colon; 2 (0 = Unprepared colon segment with mucosa not seen due to solid stool that cannot be cleared. 1 = Portion of mucosa of the colon segment seen, but other areas of the colon segment not well seen due to staining, residual stool and/or opaque liquid. 2 = Minor amount of residual staining, small fragments of stool and/or opaque liquid, but mucosa of colon segment seen well. 3 = Entire mucosa of colon segment seen well with no residual staining, small fragments of stool or opaque liquid) Impression and Post Procedure Diagnosis: Colonoscopy Findings: Six small to medium sized polyps were removed A few additional polyps in the left colon were not removed due to excessive length of the procedure. Moderate diverticulosis seen in the left colon Moderate hemorrhoids on retroflexed exam. Plan: I will send a letter with polyp biopsy results Repeat colon in 6 months if polyps are adenomatous and for removal of remaining left colon polyps - scheduled 11/24/24. Above findings were reviewed with the patient and relevant handouts were given and the discharge area. BIOPSIES SHOWED: A. Colon, sigmoid, polypectomies: - Traditional serrated adenoma; negative for high-grade dysplasia or carcinoma. - Tubular adenoma; negative for high-grade dysplasia or carcinoma. B. Colon, ascending, polypectomies: - Fragments of tubular adenoma(ta); negative for high-grade dysplasia or carcinoma. - Fragments of sessile serrated lesion(s)/polyp(s); negative for cytologic dysplasia. C. Colon, 70 cm, polypectomy: Fragments of sessile serrated lesion/polyp; negative for cytologic dysplasia. D. Colon, sigmoid at 15 cm, polypectomy: Adenocarcinoma, moderately differentiated, invasive into submucosa, arising in tubular adenoma; margin negative (2 mm to cauterized base). Pt called and biopsy results reviewed with her. She was advised to schedule repeat colonoscopy in 4-6 weeks to check polypectomy site at 15 cms and for removal of remaining polyps in the left colon.
[2024-10-06 14:28] VITALS: BP 130/91; PULSE 88; RESP 16; TEMP 36.4; O2SAT 98
[2024-10-06 14:43] VITALS: BP 155/81; PULSE 55; RESP 16; O2SAT 98
[2024-10-06 14:55] VITALS: BP 157/89; PULSE 56; RESP 16; TEMP 36.4; O2SAT 98
== END 2024-10-06 15:14 | disposition home or self-care (01) ==
PROVIDERS: PCP Internal Medicine; Visit Provider Internal Medicine Gastroenterology
PROC: 0DJD8ZZ Inspection of Lower Intestinal Tract, Via Natural or Artificial Opening Endoscopic (ICD-10-PCS; CPT 45378; principal; 2024-10-06 12:10)
DX: R19.5 Other fecal abnormalities (principal); Z83.719 Family history of colon polyps, unspecified; C18.7 Malignant neoplasm of sigmoid colon; D12.2 Benign neoplasm of ascending colon; D12.4 Benign neoplasm of descending colon; D12.5 Benign neoplasm of sigmoid colon; K57.30 Diverticulosis of large intestine without perforation or abscess without bleeding; K64.8 Other hemorrhoids
CPT/HCPCS: 45385; 45381; 88305; 88341; 88342; J2003; J2250; J2704

== ENCOUNTER → 2024-10-06 10:35 | Outpatient (BNV) | payer OTHER, SELFPAY | PROVIDERS: PCP Internal Medicine; Visit Provider Internal Medicine Gastroenterology | DX: Z12.11 Encounter for screening for malignant neoplasm of colon (principal); R19.5 Other fecal abnormalities; D12.2 Benign neoplasm of ascending colon; D12.5 Benign neoplasm of sigmoid colon; K57.30 Diverticulosis of large intestine without perforation or abscess without bleeding; K64.8 Other hemorrhoids | CPT/HCPCS: 45381; 45385 ==

== ENCOUNTER 2024-11-24 09:37 | Day surgery (SDC) | payer OTHER, SELFPAY ==
--- NOTE | 2024-11-19 14:24 | P.CONAN_ITS ---
Documented by User: Ioana Putnam NP 11/19/24 14:24 HPI - Anesthesia Eval Consult details Narrative: 53yo F for Colonoscopy PMFSH Active Problems Active Problems: All Active Problems Vitamin D overdose (Acute) Elevated LFTs (Acute) Annual physical exam (Acute) Family history of polyps in the colon (Acute) Cold sore (Acute) Periorbital cellulitis of left eye (Acute) Positive colorectal cancer screening using Cologuard test (Acute) Loose stools (Acute) Pre-op examination (Acute) Rectal bleed (Acute) HTN (hypertension) (Acute) Combined hyperlipidemia (Acute) Menopausal disorder (Acute) Palpitations (Acute) Anxiety (Acute) Past Medical History Medical History (Updated 11/24/24 @ 11:05 by Nini Light RN) Psoriasis Annual physical exam Strep pharyngitis Hematuria Right flank pain Hx of renal calculi Kidney stone Otitis media, right Encounter for IUD removal Well woman exam HTN (hypertension) Menopausal disorder Palpitations Anxiety Family History Family History Father CVD (cardiovascular disease) History of heart attack Mother HTN (hypertension) Maternal Grandmother Aneurysm Maternal Grandfather Myocardial infarction Maternal Grandmother Aneurysm Paternal Grandfather Myocardial infarction CVD (cardiovascular disease) Paternal Grandmother Aneurysm Paternal Uncle CVD (cardiovascular disease) Myocardial infarction Brother No problems noted. Daughter No problems noted. Family history of problems with anesthesia: No Surgical History Surgical History (Updated 11/24/24 @ 10:08 by Nini Light RN) H/O colonoscopy with polypectomy History of section History of tubal ligation History of Problems with Anesthesia: No Social History Social History Housing: Condominium Are you a primary behavioral health care manager to a significant other at home: No Do you presently have visiting nurse or other home services: No Alcohol intake: current Alcohol intake frequency: 3 or more drinks per day Patient Tobacco Use Status: Current everyday Tobacco user Tobacco use type: Cigarette Cigarettes Per Day: 4 Years Smoked: 20 years e-Cigarette/Vaping Use: Never Used Use of substances other than those prescribed or required for medical reasons: Yes Substance Use Type Other:: edibles Are you DNR?: No Advance Directives: No Advance Directives Information Provided: Yes Patient : No : No Poor oral hygiene: No Current occupational status: employed Cognitive needs: No Hearing needs: No Vision needs: Yes Meds Allergies Allergy/AdvReac Type Severity Reaction Status Date / Time No Known Allergies Allergy Verified 10/06/24 10:55 Home Medications ?Medication ?Instructions ?Recorded ?Confirmed ?Last Taken ?Type fluocinonide 0.05 % topical 1 appl topical BID PRN Itc tuyet 02/23/21 10/06/24 Unknown History solution ixekizumab 80 mg/mL subcutaneous 80 mg subcut Q4W 03/2210/06/24 Unknown History auto-injector ([employer] Autoinjector (2 Pack)) calcipotriene 0.005 % topical cream 1 appl topical QAM 01/05/24 10/06/24 Unknown History Assessment and Plan Assessment Anesthesia Assessment: Chart Reviewed Final Anesthetic Review Family History of Problems with Anesthesia: No History of Problems with Anesthesia: No Documented by User: Lissette Elliott MD 11/24/24 11:21 [facility] Past Medical History Medical History (Updated 11/24/24 @ 11:05 by Nini Light RN) Psoriasis Annual physical exam Strep pharyngitis Hematuria Right flank pain Hx of renal calculi Kidney stone Otitis media, right Encounter for IUD removal Well woman exam HTN (hypertension) Menopausal disorder Palpitations Anxiety Family History Family History Father CVD (cardiovascular disease) History of heart attack Mother HTN (hypertension) Maternal Grandmother Aneurysm Maternal Grandfather Myocardial infarction Maternal Grandmother Aneurysm Paternal Grandfather Myocardial infarction CVD (cardiovascular disease) Paternal Grandmother Aneurysm Paternal Uncle CVD (cardiovascular disease) Myocardial infarction Brother No problems noted. Daughter No problems noted. Surgical History Surgical History (Updated 11/24/24 @ 10:08 by Nini Light RN) H/O colonoscopy with polypectomy History of section History of tubal ligation Social History Social History Housing: Condominium Are you a primary behavioral health care manager to a significant other at home: No Do you presently have visiting nurse or other home services: No Alcohol intake: current Alcohol intake frequency: 3 or more drinks per day Patient Tobacco Use Status: Current everyday Tobacco user Tobacco use type: Cigarette Cigarettes Per Day: 4 Years Smoked: 20 years e-Cigarette/Vaping Use: Never Used Use of substances other than those prescribed or required for medical reasons: Yes Substance Use Type Other:: edibles Are you DNR?: No Advance Directives: No Advance Directives Information Provided: Yes Patient : No : No Poor oral hygiene: No Current occupational status: employed Cognitive needs: No Hearing needs: No Vision needs: Yes Meds Allergies Allergy/AdvReac Type Severity Reaction Status Date / Time No Known Allergies Allergy Verified 10/06/24 10:55 Home Medications ?Medication ?Instructions ?Recorded ?Confirmed ?Last Taken ?Type fluocinonide 0.05 % topical 1 appl topical BID PRN Itc tuyet 02/23/21 10/06/24 Unknown History solution ixekizumab 80 mg/mL subcutaneous 80 mg subcut Q4W 03/2210/06/24 Unknown History auto-injector ([email or web address] Autoinjector (2 Pack)) calcipotriene 0.005 % topical cream 1 appl topical QAM 01/05/24 10/06/24 Unknown History Exam Airway Mallampati Class: II TM Dist: >3cm Neck ROM: Full Loose/Missing/Broken Teeth: No Heart: RRR Lungs: CTA Assessment and Plan Assessment Anesthesia Assessment: Anesthesia Plan Discussed Final Anesthetic Review NPO: Yes ASA Class: II Final Preanesthetic Review: Meds/Allgs Chart Reviewed, Consent Obtained/Reviewed and Anes Risks/Benef Reviewed Patient Risk: Low Procedure Risk: Low Anesthetic Plan Anesthetic Plan: MAC: Disposition: Standard PACU
--- NOTE | 2024-11-24 09:37 | MHC.SHP ---
Pre-Procedural Eval Section A - 24 Hr Update-Section A only Date of Service: 11/24/24 The patient is an INPATIENT: No The patient has been examined within 24 hours of the surgical procedure. The History & Physical has been completed within 30 days and I have reviewed it.: No Section B - Complete if H&P > 30 days Chief Complaint: Surveillance for colon polyps Relevant Family History (Specify if Yes): Yes Relevant Social History: Tobacco Use Present Medications: see Short Stay Collaborative assessment Medical History: Significant History (Hematuria Right flank pain Hx of renal calculi Kidney stone Otitis media, right Encounter for IUD removal Well woman exam HTN (hypertension)) History of Previous Operations: Relevant previous surgery/procedure and date(s) (History of section History of tubal ligation) Allergies: Allergies Allergy/AdvReac Type Severity Reaction Status Date / Time No Known Allergies Allergy Verified 10/06/24 10:55 Review of Systems Sugical H&P ROS: Negative: Constitution, Cardiovascular, Respiratory and Gastrointestinal and Yes, Specify: Psychiatric (anxiety) Exam Surgical H&P Exam: Normal: Heart, Normal: Lungs, Normal: Extremities and Normal: Abdomen Plan Diagnosis/Plan: Unchanged I have reviewed the history and physical and performed a pertinent physical examination on my patient. No changes have occurred unless specified. Time Spent With Patient Time: Total time managing care of this patient today ____ minutes.
[2024-11-24 10:06] VITALS: BMI 25.6
[2024-11-24 10:20] VITALS: BP 137/88; PULSE 60; RESP 16; TEMP 36.2; O2SAT 96
[2024-11-24] MEDS: Lactated Ringers 1,000 ML 100 ML IVCONT (10:30)
--- NOTE | 2024-11-24 12:19 | HO.OPN-COLON ---
Colonoscopy Operative Note Operative Note Date of Service: 11/24/24 Narrative: COLONOSCOPY TILL CECUM WITH BIOPSIES, SNARE POLYPECTOMY, SUBMUCOSAL INJECTION AND HEMOCLIP PLACEMENT Pre-op diagnosis: Follow-up of multiple colon polyps and adenocarcinoma arising in a sigmoid polyp. Post-op diagnosis:? Colon polyps, Diverticulosis, hemorrhoids Specimens and Sources: : a. cecum polyp ?b. ascending colon polyp ?c. descending colon polyp ?d-polyps at 35cm sigmoid colon ?e- polypectomies at 15cm Endoscopist:? Chintan Martinez MD Anesthesia:?MAC Consent: Indications for the procedure and potential complications of bleeding, perforation, reaction to medications and missed diagnosis were discussed with the patient and informed consent was obtained. Instrument: Olympus PCF H 190 L variable stiffness pediatric colonoscope Monitoring: Vital signs and clinical assessment, intermittent blood pressure monitoring, continuous EKG monitoring, Pulse oximetry and Carbon Dioxide monitoring were done throughout the procedure. Please see anesthesia flowsheet. Colon withdrawl time was 45 minutes. Procedure: The patient was placed in the left lateral decubitis position and pre-procedure medications were administered. After a digital rectal examination of the ano-rectum, the video colonoscope was inserted into the rectum and advanced through the colon to the cecum. The colonoscope was slowly withdrawn in a retrograde panoramic fashion and the colon mucosa was carefully examined including a retroflexed view of the rectum. Findings and interventions are described below. Procedure Difficulty: without difficulty Findings: Terminal Ileum: Not evaluated Cecum: A 4-5 mm sessile polyp - removed with a cold snare. Ascending Colon: Polypectomy site visulaized at 75 cms without residual/recurrent polyp. Biopsies were obtained. Transverse Colon: Normal Descending Colon: A 15 to 18 mm sessile polyp - removed with a stiff hot snare. Polypectomy site was closed with 1 hemoclip. Moderate diverticulosis Sigmoid Colon: A 2.5 to 3 cms elongated sessile polyp at 35 cms. Polyp was raised with 3 cc of Eleview and removed with a stiff hot snare. Polypectomy site was closed with 2 hemoclips. Two 12 - 15 mm sessile polyps - removed with a hot snare. Polypectomy site visualized at 15 cms without residual/recurrent polyp - multiple biopsies were obtained. Severe diverticulosis with luminal narrowing Rectum: Normal Ano-rectum: Moderate internal hemorrhoids Colon preparation: Good after copious irrigation. [place] Bowel Preparation Scale Right colon; 2 Transverse colon: 2 Left colon; 2 (0 = Unprepared colon segment with mucosa not seen due to solid stool that cannot be cleared. 1 = Portion of mucosa of the colon segment seen, but other areas of the colon segment not well seen due to staining, residual stool and/or opaque liquid. 2 = Minor amount of residual staining, small fragments of stool and/or opaque liquid, but mucosa of colon segment seen well. 3 = Entire mucosa of colon segment seen well with no residual staining, small fragments of stool or opaque liquid) Impression and Post Procedure Diagnosis: Colonoscopy Findings: Five small to medium sized polyps were removed Moderate diverticulosis seen in the left colon Moderate hemorrhoids on retroflexed exam. Plan: I will contact the patient with biopsy results. Repeat Colonoscopy in 6 to 12 months if polyps are adenomatous. Above findings were reviewed with the patient and relevant handouts were given and the discharge area.
[2024-11-24 12:20] VITALS: BP 143/53; PULSE 68; RESP 18; TEMP 36.1; O2SAT 96
[2024-11-24 12:35] VITALS: BP 149/89; PULSE 54; RESP 18; TEMP 36.1; O2SAT 98
== END 2024-11-24 13:12 | disposition home or self-care (01) ==
PROVIDERS: PCP Internal Medicine; Visit Provider Internal Medicine Gastroenterology
PROC: 0DJD8ZZ Inspection of Lower Intestinal Tract, Via Natural or Artificial Opening Endoscopic (ICD-10-PCS; CPT 45378; principal; 2024-11-24 11:00)
DX: R19.5 Other fecal abnormalities (principal); D12.0 Benign neoplasm of cecum; D12.4 Benign neoplasm of descending colon; D12.5 Benign neoplasm of sigmoid colon; K57.30 Diverticulosis of large intestine without perforation or abscess without bleeding; K64.8 Other hemorrhoids; Z83.719 Family history of colon polyps, unspecified; I10 Essential (primary) hypertension; F17.210 Nicotine dependence, cigarettes, uncomplicated
CPT/HCPCS: 45381; 45385; 45380; 88305; J1596; J2003; J2704

== ENCOUNTER → 2024-11-24 09:37 | Outpatient (BNV) | payer OTHER, SELFPAY | PROVIDERS: PCP Internal Medicine; Visit Provider Internal Medicine Gastroenterology | DX: Z12.11 Encounter for screening for malignant neoplasm of colon (principal); Z86.0101 Personal history of adenomatous and serrated colon polyps; D12.0 Benign neoplasm of cecum; D12.4 Benign neoplasm of descending colon; D12.5 Benign neoplasm of sigmoid colon; K57.90 Diverticulosis of intestine, part unspecified, without perforation or abscess without bleeding; K64.8 Other hemorrhoids | CPT/HCPCS: 45381; 45385 ==